=== PATIENT | male | born 1935 | race Caucasian/White ===

== ENCOUNTER 2016-03-11 02:26 | Observation (INO) | payer MEDICARE ==
[2016-03-11] VITALS (16 sets, daily range): BP systolic 100–137; BP diastolic 51–97; PULSE 60–108; RESP 15–24; TEMP 97.6–99.9; O2SAT 93–98
[~2016-03-11 02:26] MED LIST: CIPR-9 PO
[2016-03-11] MEDS ORDERED: LEUP1INJ6 SQ (05:48)
--- NOTE | 2016-03-11 05:51 | PD ---
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 +Fever today. +Cough. +Nasal congestion. Denies any chest pain, n/v, abdominal pain, weakness, numbness, history of PE, DVT. Pt had allen place by Dr. De Jesus yesterday because he was having gross hematuria with blood clots. PFSH Past Medical History Blood Disorders: No Anxiety: No Depression: No Heart Rhythm Problems: Yes (CURRENTLY HAS A PACEMAKER) Cancer: Yes (PROSTATE 2004 AND 2006 W/CRYOSURGERY) Cardiovascular Problems: Yes (PACEMAKER) High Cholesterol: No Chemotherapy: Yes (PROSTATE CA) Chest Pain: No Congestive Heart Failure: No Diminished Hearing: No Endocrine: No Genitourinary: Yes (PROSTATE CA, CRYOSURGERY, TURP) Immune Disorder: No Implanted Vascular Access Dvce: Yes Musculoskeletal: No Neurologic: No Psychiatric: No Reproductive: No Respiratory: No Radiation Therapy: No Past Surgical History Abdominal Surgery: No Body Medical Devices: PACEMAKER Cardiac Surgery: Yes (PACEMAKER) Ear Surgery: No Endocrine Surgery: No Eye Surgery: No Genitourinary Surgery: Yes (TURP ) Gynecologic Surgery: No Oral Surgery: No Pacemaker: Yes Thoracic Surgery: No Other Surgery: Yes Social History Alcohol Use: No Tobacco Use: No Substance Use: No Allergies-Medications (Allergen,Severity, Reaction): Coded Allergies: No Known Allergies (Verified , 03/11/16) Reported Meds & Prescriptions Reported Meds & Active Scripts Active Reported Eligard Inj Kit (Leuprolide (4 Month) Inj Kit) 30 Mg Kit 30 Mg SQ Q120D Review of Systems Except as stated in HPI: all other systems reviewed are Neg Physical Exam Narrative GENERAL: 80yo M not in distress. SKIN: Warm and dry. HEAD: Atraumatic. Normocephalic. EYES: Pupils equal and round. No scleral icterus. No injection or drainage. ENT: No nasal bleeding or discharge. Mucous membranes pink and moist. NECK: Trachea midline. No JVD. CARDIOVASCULAR: Regular rate and rhythm. No murmur appreciated. RESPIRATORY: No accessory muscle use. Clear to auscultation. Breath sounds equal bilaterally. GASTROINTESTINAL: Abdomen soft, non-tender, nondistended. No rebound tenderness or guarding. MUSCULOSKELETAL: No obvious deformities. No clubbing. No cyanosis. Trace bilateral lower ext edema. NEUROLOGICAL: Awake and alert. No obvious cranial nerve deficits. Motor grossly within normal limits. Normal speech. PSYCHIATRIC: Appropriate mood and affect; insight and judgment normal. Data Data Last Documented VS Vital Signs Date Time Temp Pulse Resp B/P Pulse Ox O2 Delivery O2 Flow Rate FiO2 03/11/16 07:35 60 16 102/51 95 Room Air 03/11/16 05:46 98.7 Orders Complete Blood Count With Diff (03/11/16 05:46) Basic Metabolic Panel (Bmp) (03/11/16 05:46) Act Partial Throm Time (Ptt) (03/11/16 05:46) Prothrombin Time / Inr (Pt) (03/11/16 05:46) Troponin I (03/11/16 05:46) Influenzae A/B Antigen (03/11/16 05:46) Blood Culture (03/11/16 05:46) Iv Access Insert/Monitor (03/11/16 05:46) Ecg Monitoring (03/11/16 05:46) Oximetry (03/11/16 05:46) Oxygen Administration (03/11/16 05:46) Chest, Single Ap (03/11/16 05:46) Sodium Chloride 0.9% Flush (Ns Flush) (03/11/16 06:00) Red Blood Cells (Rbc) (03/11/16 07:33) Blood Product Administration .UPON TRANSFUSION (03/11/16 07:33) Sodium Chlor 0.9% 250 Ml Inj (Ns 250 Ml (03/11/16 07:45) Type And Screen (03/11/16 07:33) Admit Order (Ed Use Only) (03/11/16 08:03) Labs Laboratory Tests Test 03/11/16 05:55 White Blood Count 11.7 TH/MM3 Red Blood Count 2.94 MIL/MM3 Hemoglobin 7.6 GM/DL Hematocrit 23.8 % Mean Corpuscular Volume 81.0 FL Mean Corpuscular Hemoglobin 25.9 PG Mean Corpuscular Hemoglobin 31.9 % Concent Red Cell Distribution Width 16.4 % Platelet Count 313 TH/MM3 Mean Platelet Volume 8.5 FL Neutrophils (%) (Auto) % Lymphocytes (%) (Auto) % Monocytes (%) (Auto) % Eosinophils (%) (Auto) % Basophils (%) (Auto) % Neutrophils # (Auto) TH/MM3 Lymphocytes # (Auto) TH/MM3 Monocytes # (Auto) TH/MM3 Eosinophils # (Auto) TH/MM3 Basophils # (Auto) TH/MM3 CBC Comment AUTO DIFF Differential Total Cells 100 Counted Neutrophils % (Manual) 82 % Band Neutrophils % 5 % Lymphocytes % 3 % Monocytes % 9 % Basophils % 1 % Neutrophils # (Manual) 10.2 TH/MM3 Differential Comment FINAL DIFF MANUAL Platelet Estimate NORMAL Platelet Morphology Comment NORMAL Prothrombin Time 12.5 SEC Prothromb Time International 1.1 RATIO Ratio Activated Partial 28.1 SEC Thromboplast Time Sodium Level 136 MEQ/L Potassium Level 4.6 MEQ/L Chloride Level 104 MEQ/L Carbon Dioxide Level 23.9 MEQ/L Anion Gap 8 MEQ/L Blood Urea Nitrogen 38 MG/DL Creatinine 2.22 MG/DL Estimat Glomerular Filtration 29 ML/MIN Rate Random Glucose 108 MG/DL Calcium Level 8.9 MG/DL Troponin I 0.21 NG/ML MDM Medical Decision Making Medical Screen Exam Complete: Yes Emergency Medical Condition: Yes Interpretation(s) EKG: Paced rhythm at 60bpm. LAD. No concordance. Last Impressions Chest X-Ray 03/11/16 0546 Signed Impressions: Service Date/Time: Friday, March 11, 2016 06:00 - CONCLUSION: No acute disease. Michael Coyle MD Laboratory Tests Test 03/11/16 05:55 White Blood Count 11.7 TH/MM3 (4.0-11.0) Red Blood Count 2.94 MIL/MM3 (4.50-5.90) Hemoglobin 7.6 GM/DL (13.0-17.0) Hematocrit 23.8 % (39.0-51.0) Mean Corpuscular Volume 81.0 FL (80.0-100.0) Mean Corpuscular Hemoglobin 25.9 PG (27.0-34.0) Mean Corpuscular Hemoglobin 31.9 % Concent (32.0-36.0) Red Cell Distribution Width 16.4 % (11.6-17.2) Platelet Count 313 TH/MM3 (150-450) Mean Platelet Volume 8.5 FL (7.0-11.0) Neutrophils (%) (Auto) % (16.0-70.0) Lymphocytes (%) (Auto) % (9.0-44.0) Monocytes (%) (Auto) % (0.0-8.0) Eosinophils (%) (Auto) % (0.0-4.0) Basophils (%) (Auto) % (0.0-2.0) Neutrophils # (Auto) TH/MM3 (1.8-7.7) Lymphocytes # (Auto) TH/MM3 (1.0-4.8) Monocytes # (Auto) TH/MM3 (0-0.9) Eosinophils # (Auto) TH/MM3 (0-0.4) Basophils # (Auto) TH/MM3 (0-0.2) CBC Comment AUTO DIFF Prothrombin Time 12.5 SEC (9.8-11.6) Prothromb Time International 1.1 RATIO Ratio Activated Partial 28.1 SEC Thromboplast Time (24.3-30.1) Sodium Level 136 MEQ/L (136-145) Potassium Level 4.6 MEQ/L (3.5-5.1) Chloride Level 104 MEQ/L (98-107) Carbon Dioxide Level 23.9 MEQ/L (21.0-32.0) Anion Gap 8 MEQ/L (5-15) Blood Urea Nitrogen 38 MG/DL (7-18) Creatinine 2.22 MG/DL (0.60-1.30) Estimat Glomerular Filtration 29 ML/MIN (>89) Rate Random Glucose 108 MG/DL (74-106) Calcium Level 8.9 MG/DL (8.5-10.1) Troponin I 0.21 NG/ML (0.02-0.05) Differential Diagnosis PNA vs. symptomatic anemia vs. influenza vs. URI vs. ACS Narrative Course 80yo M with prostate CA with increasing hematuria who had allen placed yesterday by urologist here with worsening sob. H/H is 7.6/23.8. Pt is having active hematuria and symptomatic anemia so will transfuse 1 unit of PRBC. BUN/ creatinine elevated at 38/2.22 from 21/1.65. Troponin 0.21. CXR showed no acute disease. Influenza negative. I sign out to next team after end of my shift to speak to admitting team to admit patient for symptomatic anemia with active bleeding after a prolonged wait for call back from admitting team. Diagnosis Primary Impression: Symptomatic anemia Admitting Information Admitting Physician Requests: it Rosa Elder DO Mar 11, 2016 05:51
[2016-03-11] MEDS ORDERED: SODIUM CHLORIDE 0.9% FLUSH 5 ML FLUSH IVF PRN (06:00)
[2016-03-11 06:37] LABS: HEMATOCRIT 23.8 % (39.0-51.0); MEAN CORPUSCULAR HEMOGLOBIN 25.9 PG (27.0-34.0); MEAN CORPUSCULAR HGB CONC 31.9 % (32.0-36.0); PLATELET COUNT 313 TH/MM3 (150-450); RED BLOOD COUNT 2.94 MIL/MM3 (4.50-5.90); RED CELL DISTRIBUTION WIDTH 16.4 % (11.6-17.2); WHITE BLOOD COUNT 11.7 TH/MM3 (4.0-11.0)
[2016-03-11 06:42] LABS: HEMO FLAGS AUTO DIFF
--- NOTE | 2016-03-11 06:46 | RADRPT ---
EXAM DATE/TIME: 03/11/2016 06:00 [facility] COMPARISON: CHEST SINGLE AP, January 29, 2016, 19:45. INDICATIONS : Short of breath. MEDICAL HISTORY : Carcinoma, prostatic. SURGICAL HISTORY : Pacemaker. Prostate open reduction, Laminectomy ENCOUNTER: Initial ACUITY: 1 day PAIN SCORE: 0/10 LOCATION: Bilateral chest FINDINGS: A single view of the chest demonstrates the lungs to be symmetrically aerated without evidence of mas s, infiltrate or effusion. Left-sided pacemaker with 2 intact leads. The cardiomediastinal contours a re unremarkable. Osseous structures are intact. CONCLUSION: No acute disease. Michael Coyle MD on March 11, 2016 at 6:44 Board Certified Radiologist. This report was verified electronically.
[2016-03-11 06:50] LABS: APTT (PATIENT) 28.1 SEC (24.3-30.1); INTERNATIONAL NORMALIZED RATIO 1.1 RATIO; PROTHROMBIN TIME - PATIENT 12.5 SEC (9.8-11.6)
[2016-03-11 06:54] LABS: BICARBONATE 23.9 MEQ/L (21.0-32.0); POTASSIUM 4.6 MEQ/L (3.5-5.1)
[2016-03-11] MEDS ORDERED: SODIUM CHLOR 0.9% 250 ML INJ 250 ML IV ONE (07:45)
--- NOTE | 2016-03-11 08:05 | PD ---
Physical Exam Date Seen by Provider: Mar 11, 2016 Time Seen by Provider: 07:45 Narrative Patient signed out to me by Dr. Elder, please see previous notes for further information. History of prostate cancer, hematuria, admitted in the past for hematuria and anemia, here because of gross hematuria and is anemic. Awaiting admission. Laboratory Tests Test 03/11/16 05:55 White Blood Count 11.7 TH/MM3 (4.0-11.0) Red Blood Count 2.94 MIL/MM3 (4.50-5.90) Hemoglobin 7.6 GM/DL (13.0-17.0) Hematocrit 23.8 % (39.0-51.0) Mean Corpuscular Hemoglobin 25.9 PG (27.0-34.0) Mean Corpuscular Hemoglobin 31.9 % Concent (32.0-36.0) Prothrombin Time 12.5 SEC (9.8-11.6) Blood Urea Nitrogen 38 MG/DL (7-18) Creatinine 2.22 MG/DL (0.60-1.30) Estimat Glomerular Filtration 29 ML/MIN (>89) Rate Random Glucose 108 MG/DL (74-106) Troponin I 0.21 NG/ML (0.02-0.05) Last 24 hours Impressions Chest X-Ray 03/11/16 0546 Signed Impressions: Service Date/Time: Friday, March 11, 2016 06:00 - CONCLUSION: No acute disease. Michael Coyle MD Case was discussed with Dr. Bone who knows the patient well. Patient is ordered for transfusion. Except by hospitalist for further treatment. Data Data Last Documented VS Vital Signs Date Time Temp Pulse Resp B/P Pulse Ox O2 Delivery O2 Flow Rate FiO2 03/11/16 07:35 60 16 102/51 95 Room Air 03/11/16 05:46 98.7 Orders Complete Blood Count With Diff (03/11/16 05:46) Basic Metabolic Panel (Bmp) (03/11/16 05:46) Act Partial Throm Time (Ptt) (03/11/16 05:46) Prothrombin Time / Inr (Pt) (03/11/16 05:46) Troponin I (03/11/16 05:46) Influenzae A/B Antigen (03/11/16 05:46) Blood Culture (03/11/16 05:46) Iv Access Insert/Monitor (03/11/16 05:46) Electrocardiogram (03/11/16 05:46) Ecg Monitoring (03/11/16 05:46) Oximetry (03/11/16 05:46) Oxygen Administration (03/11/16 05:46) Chest, Single Ap (03/11/16 05:46) Sodium Chloride 0.9% Flush (Ns Flush) (03/11/16 06:00) Red Blood Cells (Rbc) (03/11/16 07:33) Blood Product Administration .UPON TRANSFUSION (03/11/16 07:33) Sodium Chlor 0.9% 250 Ml Inj (Ns 250 Ml (03/11/16 07:45) Type And Screen (03/11/16 07:33) Labs Laboratory Tests Test 03/11/16 05:55 White Blood Count 11.7 TH/MM3 Red Blood Count 2.94 MIL/MM3 Hemoglobin 7.6 GM/DL Hematocrit 23.8 % Mean Corpuscular Volume 81.0 FL Mean Corpuscular Hemoglobin 25.9 PG Mean Corpuscular Hemoglobin 31.9 % Concent Red Cell Distribution Width 16.4 % Platelet Count 313 TH/MM3 Mean Platelet Volume 8.5 FL Neutrophils (%) (Auto) % Lymphocytes (%) (Auto) % Monocytes (%) (Auto) % Eosinophils (%) (Auto) % Basophils (%) (Auto) % Neutrophils # (Auto) TH/MM3 Lymphocytes # (Auto) TH/MM3 Monocytes # (Auto) TH/MM3 Eosinophils # (Auto) TH/MM3 Basophils # (Auto) TH/MM3 CBC Comment AUTO DIFF Prothrombin Time 12.5 SEC Prothromb Time International 1.1 RATIO Ratio Activated Partial 28.1 SEC Thromboplast Time Sodium Level 136 MEQ/L Potassium Level 4.6 MEQ/L Chloride Level 104 MEQ/L Carbon Dioxide Level 23.9 MEQ/L Anion Gap 8 MEQ/L Blood Urea Nitrogen 38 MG/DL Creatinine 2.22 MG/DL Estimat Glomerular Filtration 29 ML/MIN Rate Random Glucose 108 MG/DL Calcium Level 8.9 MG/DL Troponin I 0.21 NG/ML [facility] Medical Record Reviewed: Yes Supervised Visit with CARLOS: No Diagnosis Primary Impression: Symptomatic anemia Additional Impression: Hematuria Admitting Information Admitting Physician Requests: Admit Zhang De Leon MD Mar 11, 2016 08:05
[2016-03-11 08:27] LABS: BANDS 5 % (0-6); BASOPHILS 1 % (0-2); NEUTROPHIL # MANUAL DIFF 10.2 TH/MM3 (1.8-7.7); PLATELET ESTIMATE SMEAR NORMAL (NORMAL); PLATELET MORPHOLOGY NORMAL (NORMAL); POLYS (SEG NEUTROPHILS) 82 % (16-70); SCAN/DIFF FINAL DIFF MANUAL; WBC DIFF SAMPLE 100
--- NOTE | 2016-03-11 08:38 | HHI.HP ---
HPI Service [facility] Hospitalists Primary Care Physician Eriberto Galloway M.D. Admission Diagnosis symptomatic anemia/hematuria Chief Complaint: SOB, cough, generalized weakness, hematuria Travel History International Travel<30 Days: No Contact w/Intl Traveler <30 Da: No Traveled to Known Affected Are: No History of Present Illness Mr. Arora is a pleasant 80 y/o WM with recurrent prostate cancer s/p TURP 10/28 and cystourethroscopy with clot evacuation and bladder fulguration on who follows with Dr. Wright. 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 Pt presented to the ED with complaints of cough, congestion , fever, SOB and hematuria. Pts reports that for the last 2 days he has had cough, congestion and poor oral intake. He also started having hematuria with large clots which were unable to be evacuated. He was seen by Dr. Mckinney as an outpt yesterday and had a Hagan cath placed. Then last night the pt started having fevers of 100.3, chills, generalized weakness and SOB. This prompted the pt to come to the ER for further evaluation. Pts labs at admission noted WBC count 11.1, Hgb 7.6/Hct 23.8, and acute on chronic renal insufficiency with Cr 2.22/BUN 38. Pts reports that he has not been eating or drinking much in the last 2 days. Pt denies any chest pain, N/V, abdominal pain, or palpitations. He has received Eligard injection, his last one was on . Review of Systems Constitutional: COMPLAINS OF: Fever, Chills, Change in appetite, DENIES: Weight gain, Weight loss Eyes: DENIES: Vision loss Ears, nose, mouth, throat: COMPLAINS OF: Running Nose, DENIES: Hearing loss Respiratory: COMPLAINS OF: Cough, Shortness of breath Cardiovascular: DENIES: Chest pain, Palpitations, Lower Extremity Edema Gastrointestinal: DENIES: Abdominal pain, Nausea, Vomiting Genitourinary: COMPLAINS OF: Hematuria, DENIES: Dysuria Musculoskeletal: DENIES: Back pain, Neck pain Integumentary: DENIES: Rash Neurologic: DENIES: Headache, Localized weakness, Paresthesias Past Family Social History Past Medical History Recurrent prostate cancer Sinus bradycardia Complete heart block s/p PPM Asthma Hx of alcohol abuse Hx of tobacco use Past Surgical History PPM 08/2015 Cystourethroscopy with clot evacuation and bladder fulguration on 01/13/16 TURP 10/29/2015 Prostatectomy 2002 Right sided cryotherapy in 2004 Focal radiation therapy as salvage in 2011 Left thumb surgery L4-L5 laminectomy Reported Medications Eligard Inj Kit (Leuprolide (4 Month) Inj Kit) 30 Mg Kit 30 Mg SQ Q120D Allergies: Coded Allergies: No Known Allergies (Verified , 03/11/16) Family History Noncontributory Social History This with his of 4 years. They have been together for 14. He smokes about 5 cigarettes a day. He previously had smoked up to one pack per day intermittently for most of his adult life. No alcohol or illicit drugs Previously he was a senior speech pathologist with [employer] Originally from [place], he has been in [place] since 1967 He is an avid runner. Physical Exam Vital Signs Vital Signs Date Time Temp Pulse Resp B/P Pulse Ox O2 Delivery O2 Flow Rate FiO2 03/11/16 07:35 60 16 102/51 95 Room Air 03/11/16 07:00 18 97 03/11/16 05:46 98.7 73 18 106/53 96 03/11/16 05:40 76 20 03/11/16 02:36 108 24 137/97 96 Room Air 03/11/16 02:31 97.8 99 16 119/58 96 Room Air Physical Exam GENERAL: This is a well-nourished, well-developed patient, in no apparent distress. HEENT: Atraumatic. Normocephalic. No temporal or scalp tenderness. No scleral icterus. Airway patent. NECK: Trachea midline, supple, nontender. CARDIO: Regular RESP: CTA bilaterally. No wheezes, rales, or rhonchi. ABD: +BS, soft, non-tender, nondistended. : Hagan cath in place with gross hematuria noted EXT: Extremities without clubbing, cyanosis, or edema. NEURO: Awake and alert. Motor and sensory grossly within normal limits. Normal speech. Laboratory Laboratory Tests Test 03/11/16 05:55 White Blood Count 11.7 Red Blood Count 2.94 Hemoglobin 7.6 Hematocrit 23.8 Mean Corpuscular Volume 81.0 Mean Corpuscular Hemoglobin 25.9 Mean Corpuscular Hemoglobin 31.9 Concent Red Cell Distribution Width 16.4 Platelet Count 313 Mean Platelet Volume 8.5 Neutrophils (%) (Auto) Lymphocytes (%) (Auto) Monocytes (%) (Auto) Eosinophils (%) (Auto) Basophils (%) (Auto) Neutrophils # (Auto) Lymphocytes # (Auto) Monocytes # (Auto) Eosinophils # (Auto) Basophils # (Auto) CBC Comment AUTO DIFF Prothrombin Time 12.5 Prothromb Time International 1.1 Ratio Activated Partial 28.1 Thromboplast Time Sodium Level 136 Potassium Level 4.6 Chloride Level 104 Carbon Dioxide Level 23.9 Anion Gap 8 Blood Urea Nitrogen 38 Creatinine 2.22 Estimat Glomerular Filtration 29 Rate Random Glucose 108 Calcium Level 8.9 Troponin I 0.21 Date/Time Procedure Status Source Growth 03/11/16 06:15 Influenza Types A,B Antigen (MADISYN) - Final Complete Nasal Aspirate NEGATIVE FOR FLU A AND B ANTIGEN.... 03/11/16 06:10 Aerobic Blood Culture Received Blood Peripheral Pending 03/11/16 06:10 Anaerobic Blood Culture Received Blood Peripheral Pending Result Diagram: 03/11/16 0555 03/11/16 0555 Imaging Last Impressions Chest X-Ray 03/11/16 0546 Signed Impressions: Service Date/Time: Friday, March 11, 2016 06:00 - CONCLUSION: No acute disease. Michael Coyle MD Septic Shock Reassessment Heart: Regular rate and rhythm Lungs: Clear Skin: Warm Peripheral Pulses: Bounding Right Radial Bounding Left Radial Bounding Right Popliteal Bounding Left Popliteal Bounding Right Dorsalis Pedis Bounding Left Dorsalis Pedis Bounding Right Posterior Tibial Bounding Left Posterior Tibial Capillary Refill: <2 seconds Assessment and Plan Problem List: (1) Hematuria Status: Acute Plan: - Pt with recurrent prostate cancer s/p TURP in 10/2015 and cystourethroscopy with clot evacuation and bladder fulguration in 01/2016 who typically follows with Dr. Wright. - Pt started having hematuria and obstruction related to large clots and had Hagan cath placed back yesterday with Dr. Mckinney. He has a followup appt in [address] Mckinney. - Pt had fevers and chills that night and then reported to the ER - Pt noted to be anemic with Hgb 7.6 and is planned for transfusion with 1 unit PRBCs - Pts feels that the hematuria is less today than yesterday. - UA is abnormal with noted large amount of leukocyte esterase. Urine culture is ordered (2) Cough Status: Acute Plan: - Pt has had cough, congestion, and fever x 2 days. - Pt has been afebrile since admission. - WBC count 11 at admission. - Blood cultures pending. - Likely a viral illness - Supportive care - Claritin - Tessalon pearls (3) Elevated troponin Status: Acute Plan: - Pt with a noted elevated troponin I of 0.21 at admission - Significance unclear. Pt denies any chest pain or palpitations - He did have some SOB prior to admission which has since resolved - Check EKG and serial troponin - NO hx of CAD (4) Anemia Status: Chronic Plan: - Pt with acute on chronic anemia due to blood loss related to his hematuria. - Pt is planned for transfusion with 1 units PRBCs ordered by the ER - Monitor H/H - Pt still with gross hematuria but reported to be improving per the pts . (5) Complete heart block Status: Chronic Plan: - s/p PPM in 08/2015 (6) History of prostate cancer Status: Chronic Assessment and Plan Patient examined. Assessment and plan formulated with Dee Garcia PA-C. I agree with the above. pt is now very discouraged. I will call dr Wright in the morning to discuss the direction of his care. pt gets admittedly frequently for blood loss anemia related ot ongoing hematuria related to previous surgery. Problem Qualifiers (1) Anemia: Qualified Code: D62 - Acute posthemorrhagic anemia Dee Garcia Mar 11, 2016 08:38 Aristeo Bone MD Mar 11, 2016 21:17
[2016-03-11] MEDS ORDERED: SODIUM CHLORIDE 0.9% FLUSH 5 ML FLUSH IV PRN (08:45)
[2016-03-11] MEDS ORDERED: ACETAMINOPHEN 325 MG TAB PO PRN (09:00)
[2016-03-11] MEDS ORDERED: ONDANSETRON HCL 4 MG/2 ML VIAL IV PRN (09:00)
[2016-03-11] MEDS: SODIUM CHLORIDE 0.9% FLUSH 5 ML FLUSH IV SCH ×2 (09:00→21:00)
[2016-03-11] MEDS ORDERED: BENZONATATE 100 MG CAP PO PRN (09:30)
[2016-03-11] MEDS: SODIUM CHLOR 0.9% 1000 ML INJ 1,000 ML IV SCH ×2 (12:50→21:30)
[2016-03-11] MEDS: LORATADINE 10 MG TAB PO SCH (12:50)
--- NOTE | 2016-03-11 14:07 | EKG ---
Date Performed: 03/11/2016 Time Performed: 07:37:56 PTAGE: 80 years EKG: ELECTRONIC ATRIAL PACEMAKER ELECTRONIC VENTRICULAR PACEMAKER ABNORMAL RHYTHM ECG Since PREVIOUS TRACING , no significant change noted PREVIOUS TRACIN08/07/2015 11.21 DOCTOR: Regan Ren Interpretating Date/Time 03/11/2016 14:00:04
[2016-03-11 21:14] LABS: BLOOD, URINE LARGE (NEG); COMMENT (UR) CULTURE INDICATED; CULTURE IF INDICATED CULTURE INDICATED; GLUCOSE,URINE NEG (NEG); KETONE, URINE NEG (NEG); NITRITE,URINE NEG (NEG); PH, URINE 6.5 (5.0-8.5); SQUAMOUS EPITHELIAL CELL URINE 3 /hpf (0-5)
[2016-03-11 21:15] LABS: URINE COLOR DARK-RED (YELLW/STRAW)
[2016-03-12] VITALS: PULSE 60
[2016-03-12 00:42] VITALS: BP 111/54; PULSE 60; RESP 20; TEMP 98.9; O2SAT 93
[2016-03-12 04:50] VITALS: BP 121/59; PULSE 60; RESP 20; TEMP 98.7; O2SAT 93
[2016-03-12 06:26] LABS: HEMATOCRIT 25.8 % (39.0-51.0); MEAN CELL VOLUME 81.7 FL (80.0-100.0); PLATELET COUNT 262 TH/MM3 (150-450); RED BLOOD COUNT 3.15 MIL/MM3 (4.50-5.90); RED CELL DISTRIBUTION WIDTH 16.6 % (11.6-17.2); WHITE BLOOD COUNT 7.6 TH/MM3 (4.0-11.0)
[2016-03-12 06:53] LABS: BICARBONATE 26.1 MEQ/L (21.0-32.0); MAGNESIUM 2.3 MG/DL (1.5-2.5)
[2016-03-12 07:02] LABS: HEMO FLAGS AUTO DIFF
[2016-03-12] MEDS: SODIUM CHLORIDE 0.9% FLUSH 5 ML FLUSH IV SCH (07:26)
[2016-03-12 08:34] VITALS: BP 113/55; PULSE 60; RESP 18; TEMP 98; O2SAT 95
[2016-03-12 09:50] LABS: BANDS 13 % (0-6); NEUTROPHIL # MANUAL DIFF 5.9 TH/MM3 (1.8-7.7); OVALOCYTES 1+ (NORMAL); PLATELET ESTIMATE SMEAR NORMAL (NORMAL); PLATELET MORPHOLOGY NORMAL (NORMAL); POLYS (SEG NEUTROPHILS) 64 % (16-70); SCAN/DIFF FINAL DIFF MANUAL; WBC DIFF SAMPLE 100
[2016-03-12 09:51] LABS: ACANTHOCYTES 1+ (NORMAL)
--- NOTE | 2016-03-12 09:56 | HHI.PR ---
Subjective Remarks Pt overall feeling better today. Still with gross hematuria. He states that his cough is less today with the Claritin Objective Vitals Vital Signs Date Time Temp Pulse Resp B/P Pulse Ox O2 Delivery O2 Flow Rate FiO2 03/12/16 08:34 98.0 60 18 113/55 95 03/12/16 04:50 98.7 60 20 121/59 93 03/12/16 00:42 98.9 60 20 111/54 93 03/12/16 00:00 60 03/11/16 22:15 97.6 60 18 109/55 95 03/11/16 21:16 99.9 63 20 101/53 93 03/11/16 19:30 64 18 107/64 97 Room Air 03/11/16 18:08 60 16 110/53 97 Room Air 03/11/16 16:57 77 18 106/53 98 Room Air 03/11/16 16:00 74 18 116/57 98 Room Air 03/11/16 15:20 65 18 110/54 98 Room Air 03/11/16 15:06 97.8 60 18 125/60 97 Room Air 03/11/16 14:14 61 18 103/51 97 Room Air 03/11/16 12:11 60 18 113/56 97 03/11/16 09:49 60 15 100/51 Nasal Cannula 2 98 03/11/16 03/11/16 03/12/16 15:00 23:00 07:00 Output Total 500 ml Balance -500 ml Output Urine Total 500 ml Result Diagram: 03/12/16 0516 03/12/16 0516 Other Results Laboratory Tests Test 03/11/16 03/11/16 03/11/16 03/11/16 05:55 08:10 09:50 12:46 White Blood Count 11.7 TH/MM3 Red Blood Count 2.94 MIL/MM3 Hemoglobin 7.6 GM/DL Hematocrit 23.8 % Mean Corpuscular Volume 81.0 FL Mean Corpuscular Hemoglobin 25.9 PG Mean Corpuscular Hemoglobin 31.9 % Concent Red Cell Distribution Width 16.4 % Platelet Count 313 TH/MM3 Mean Platelet Volume 8.5 FL Neutrophils (%) (Auto) % Lymphocytes (%) (Auto) % Monocytes (%) (Auto) % Eosinophils (%) (Auto) % Basophils (%) (Auto) % Neutrophils # (Auto) TH/MM3 Lymphocytes # (Auto) TH/MM3 Monocytes # (Auto) TH/MM3 Eosinophils # (Auto) TH/MM3 Basophils # (Auto) TH/MM3 CBC Comment AUTO DIFF Differential Total Cells 100 Counted Neutrophils % (Manual) 82 % Band Neutrophils % 5 % Lymphocytes % 3 % Monocytes % 9 % Basophils % 1 % Neutrophils # (Manual) 10.2 TH/MM3 Differential Comment FINAL DIFF MANUAL Platelet Estimate NORMAL Platelet Morphology Comment NORMAL Prothrombin Time 12.5 SEC Prothromb Time International 1.1 RATIO Ratio Activated Partial 28.1 SEC Thromboplast Time Sodium Level 136 MEQ/L Potassium Level 4.6 MEQ/L Chloride Level 104 MEQ/L Carbon Dioxide Level 23.9 MEQ/L Anion Gap 8 MEQ/L Blood Urea Nitrogen 38 MG/DL Creatinine 2.22 MG/DL Estimat Glomerular Filtration 29 ML/MIN Rate Random Glucose 108 MG/DL Calcium Level 8.9 MG/DL Troponin I 0.21 NG/ML 0.20 NG/ML Blood Type A NEGATIVE Antibody Screen POSITIVE Crossmatch Leukocyte-Reduced Red Blood Cells Blood Bank Comment Antibody Identification Anti-M Test 03/11/16 03/11/16 03/11/16 03/12/16 14:55 17:59 20:30 05:16 Troponin I 0.12 NG/ML Blood Type A NEGATIVE Crossmatch Leukocyte-Reduced Red Blood Cells Blood Bank Comment Urine Color DARK-RED Urine Turbidity MARKED Urine pH 6.5 Urine Specific [place] 1.020 Urine Protein 100 mg/dL Urine Glucose (UA) NEG mg/dL Urine Ketones NEG mg/dL Urine Occult Blood LARGE Urine Nitrite NEG Urine Bilirubin NEG Urine Urobilinogen LESS THAN 2.0 MG/DL Urine Leukocyte Esterase LARGE Urine RBC /hpf Urine WBC /hpf Urine Squamous Epithelial 3 /hpf Cells Microscopic Urinalysis Comment CULTURE INDICATED White Blood Count 7.6 TH/MM3 Red Blood Count 3.15 MIL/MM3 Hemoglobin 8.5 GM/DL Hematocrit 25.8 % Mean Corpuscular Volume 81.7 FL Mean Corpuscular Hemoglobin 27.0 PG Mean Corpuscular Hemoglobin 33.0 % Concent Red Cell Distribution Width 16.6 % Platelet Count 262 TH/MM3 Mean Platelet Volume 8.3 FL Neutrophils (%) (Auto) % Lymphocytes (%) (Auto) % Monocytes (%) (Auto) % Eosinophils (%) (Auto) % Basophils (%) (Auto) % Neutrophils # (Auto) TH/MM3 Lymphocytes # (Auto) TH/MM3 Monocytes # (Auto) TH/MM3 Eosinophils # (Auto) TH/MM3 Basophils # (Auto) TH/MM3 CBC Comment AUTO DIFF Sodium Level 141 MEQ/L Potassium Level 4.0 MEQ/L Chloride Level 108 MEQ/L Carbon Dioxide Level 26.1 MEQ/L Anion Gap 7 MEQ/L Blood Urea Nitrogen 41 MG/DL Creatinine 1.65 MG/DL Estimat Glomerular Filtration 40 ML/MIN Rate Random Glucose 93 MG/DL Calcium Level 8.3 MG/DL Magnesium Level 2.3 MG/DL Imaging Last Impressions Chest X-Ray 03/11/16 0546 Signed Impressions: Service Date/Time: Friday, March 11, 2016 06:00 - CONCLUSION: No acute disease. Michael Coyle MD Objective Remarks General: NAD, AAOx3 Chest: CTA bilaterally Cardiac: Regular Abd: +BS, soft ND/NT Ext: No edema A/P Problem List: (1) Hematuria Status: Acute Plan: - Pt with recurrent prostate cancer s/p TURP in 10/2015 and cystourethroscopy with clot evacuation and bladder fulguration in 01/2016 who typically follows with Dr. Wright. - Pt started having hematuria and obstruction related to large clots and had Allen cath placed back on 03/10/[address] Mckinney. He has a followup appt in [address] Mckinney. - Pt had reported fevers and chills that night and reported to the ER for further evaluation. - Pt noted to be anemic with Hgb 7.6 and pt was transfused with 2 units PRBCs. - H/H is improved today to 8.5/25.8 - Pts feels that the hematuria is less today than yesterday. - Renal function is back to baseline with the IVF - UA is abnormal and urine culture is growing group D. enterococcus - Case was discussed with his Urologist Dr. Wright and pt was prescribed Augmentin TID x 7 days. - His Allen cath is to be exchagned by [employer] prior to discharge. - Pt will followup with Dr. Woods in 3-5 days. - DVT prophylaxis (2) Cough Status: Acute Plan: - Pt has had cough, congestion, and fever x 2 days. - Pt has been afebrile since admission. - WBC count 11 at admission and improved to 7.6 today - Blood cultures pending. - Likely a viral illness - Supportive care - Claritin - Tessalon pearls PRN (3) Elevated troponin Status: Acute Plan: - Pt with a noted elevated troponin I of 0.21 at admission - Significance unclear. Pt denies any chest pain or palpitations - He did have some SOB prior to admission which has since resolved - Serial troponins are decreased 0.21-->0.20-->0.12 - No new EKG changes - NO hx of CAD (4) Anemia Status: Chronic Plan: - Pt with acute on chronic anemia due to blood loss related to his hematuria. - Pt s/p transfusion with 2 units PRBCs - Pt still with gross hematuria but reported to be improving per the pts . (5) Complete heart block Status: Chronic Plan: - s/p PPM in 08/2015 (6) History of prostate cancer Status: Chronic Assessment and Plan Patient examined. Assessment and plan formulated with Dee Garcia PA-C. I agree with the above. persistent hematuria. pt known to dr Wright. Has been getting Eligard. admitted multiple times for symptomatic anemia. states recently returned to yellow urine with eligard then reoccurred and allen placed a few days ago. says he had fever and rigors at home. urine group d enterococcus for the first time. discussed with dr wright and pt and pt . all in agreement with change allen and abx. will ask urology tech to change the cath here. Problem Qualifiers (1) Anemia: Qualified Code: D62 - Acute posthemorrhagic anemia Dee Garcia Mar 12, 2016 09:56 Aristeo Bone MD Mar 12, 2016 16:03 Dee Garcia Mar 12, 2016 09:56 Aristeo Bone MD Mar 12, 2016 16:03
[2016-03-12] MEDS ORDERED: LORA-361 PO (09:58)
--- NOTE | 2016-03-12 10:00 | HHI.DCPOC ---
Discharge Care Plan Diagnosis: (1) Hematuria (2) Anemia (3) Elevated troponin (4) Cough Goals to Promote Your Health * To prevent worsening of your condition and complications * To maintain your health at the optimal level Directions to Meet Your Goals Take your medications as prescribed Follow your dietary instruction Follow activity as directed Keep your appointments as scheduled Take your immunizations and boosters as scheduled If your symptoms worsen call your PCP, if no PCP go to Urgent Care Center or Emergency Room Smoking is Dangerous to Your Health. Avoid second hand smoke Call the 24-hour hour crisis hotline for domestic abuse at Dee Garcia Mar 12, 2016 10:00
[2016-03-12] MEDS: LORATADINE 10 MG TAB PO SCH (10:21)
[2016-03-12 12:26] VITALS: BP 120/58; PULSE 60; RESP 18; TEMP 97.9; O2SAT 95
[2016-03-12] MEDS ORDERED: AUGM500T7 PO ×2 (13:28→14:11)
[2016-03-12] MEDS ORDERED: AMOXICILLIN/CLAVULANATE K 500 MG TAB PO ONE (13:30)
--- NOTE | 2016-03-12 22:42 | EKG ---
Date Performed: 03/11/2016 Time Performed: 15:32:37 PTAGE: 80 years EKG: ELECTRONIC ATRIAL PACEMAKER ELECTRONIC VENTRICULAR PACEMAKER ABNORMAL RHYTHM ECG PREVIOUS TRACING : 03/11/2016 12.04 Compared to prior tracing no significant change DOCTOR: Wesley Tobias Interpretating Date/Time 03/12/2016 22:39:05
--- NOTE | 2016-03-12 22:49 | EKG ---
Date Performed: 03/11/2016 Time Performed: 12:04:52 PTAGE: 80 years EKG: ELECTRONIC VENTRICULAR PACEMAKER ABNORMAL RHYTHM ECG PREVIOUS TRACING : 03/11/2016 07.37 Compared to prior tracing no significant change DOCTOR: Wesley Tobias Interpretating Date/Time 03/12/2016 22:45:34
== END 2016-03-12 16:31 | disposition home or self-care (01) ==
LOC: NED 02:26 → NEDA 08:05 → NEDH 14:41 → NEDA 19:30 → NEPHCDU 21:00
PROVIDERS: ADMIT Hospitalist; ATTEND Hospitalist
DX: D50.0 Iron deficiency anemia secondary to blood loss (chronic) (principal); N02.9 Recurrent and persistent hematuria with unspecified morphologic changes; B95.2 Enterococcus as the cause of diseases classified elsewhere; C61 Malignant neoplasm of prostate; I44.2 Atrioventricular block, complete; N18.9 Chronic kidney disease, unspecified; J45.909 Unspecified asthma, uncomplicated; F17.210 Nicotine dependence, cigarettes, uncomplicated; Z95.0 Presence of cardiac pacemaker; Z90.79 Acquired absence of other genital organ(s)
CPT/HCPCS: 36430; 71010; 80048; 81001; 83735; 84484; 85007; 85027; 85610; 85730; 86077; 86850; 86870; 86900; 86901; 86902; 86920; 86922; 87040; 87077; 87086; 87186; 87205; 87804; 93005; 99285; G0378; J7030; J7050; P9016

== ENCOUNTER 2016-03-12 22:17 | Inpatient (IN) | payer MEDICARE ==
[~2016-03-12] VITALS: Ht 182.9 cm; Wt 70.0 kg
[~2016-03-12 22:17] MED LIST changes: +AUGM500T7 PO; -CIPR-9 PO; +LEUP1INJ6 SQ; +LORA-361 PO
--- NOTE | 2016-03-12 22:25 | PD ---
HPI Chief Complaint: Hematuria Time Seen by Provider: 22:23 Travel History International Travel<30 days: No Contact w/Intl Traveler<30days: No Traveled to known affect area: No History of Present Illness HPI 80-year-old male with history of prostate cancer presents to emergency department for evaluation of urinary retention. Patient has a Hagan in place. He was admitted yesterday and discharged today for gross hematuria and urinary obstruction. Patient was discharged today with gross hematuria. Per the patient, there have been large clots and urinary output is decreased. He reports sensation of having to void and a distended bladder. No fever or chills. No nausea, vomiting, diarrhea. He states that he has been dealing with this for years. He is followed by Dr. Wright. He has no other symptoms to report. PFSH Past Medical History Blood Disorders: No Anxiety: No Depression: No Heart Rhythm Problems: Yes Cancer: Yes Cardiovascular Problems: Yes High Cholesterol: No Chemotherapy: Yes (PROSTATE CA) Chest Pain: No Congestive Heart Failure: No Diminished Hearing: No Endocrine: No Genitourinary: Yes (prostate ca) Immune Disorder: No Implanted Vascular Access Dvce: Yes Musculoskeletal: No Neurologic: No Psychiatric: No Reproductive: No Respiratory: No Radiation Therapy: No Past Surgical History Abdominal Surgery: No Body Medical Devices: PACEMAKER Cardiac Surgery: Yes (PACEMAKER) Ear Surgery: No Endocrine Surgery: No Eye Surgery: No Genitourinary Surgery: Yes (TURP ) Gynecologic Surgery: No Oral Surgery: No Pacemaker: Yes Thoracic Surgery: No Other Surgery: Yes Social History Alcohol Use: No Tobacco Use: No Substance Use: No Allergies-Medications (Allergen,Severity, Reaction): Coded Allergies: No Known Allergies (Verified , 03/12/16) Reported Meds & Prescriptions Reported Meds & Active Scripts Active Augmentin (Amoxicillin-Clavulanate) 500-125 mg Tab 500 Mg PO TID 10 Days Claritin (Loratadine) 10 Mg Tab 10 Mg PO DAILY Reported Eligard Inj Kit (Leuprolide (4 Month) Inj Kit) 30 Mg Kit 30 Mg SQ Q120D Review of Systems Except as stated in HPI: all other systems reviewed are Neg Physical Exam Narrative GENERAL: Well-nourished, well-developed elderly male patient in no acute distress SKIN: Warm and dry. HEAD: Normocephalic. EYES: No scleral icterus. No injection or drainage. NECK: Supple, trachea midline. No JVD or lymphadenopathy. CARDIOVASCULAR: Regular rate and rhythm without murmurs, gallops, or rubs. RESPIRATORY: Breath sounds equal bilaterally. No accessory muscle use. GASTROINTESTINAL: Abdomen soft, nontender. Bladder is distended. Patient is with Hagan catheter in place with gross hematuria noted in the tubing and bag. MUSCULOSKELETAL: No cyanosis, or edema. BACK: Nontender without obvious deformity. No CVA tenderness. Data Data Last Documented VS Vital Signs Date Time Temp Pulse Resp B/P Pulse Ox O2 Delivery O2 Flow Rate FiO2 03/12/16 22:31 16 03/12/16 22:29 98.3 70 166/65 99 Orders Iv Access Insert/Monitor (03/12/16 22:34) Complete Blood Count With Diff (03/12/16 22:34) Basic Metabolic Panel (Bmp) (03/12/16 22:34) Coag Profile (03/12/16 22:34) Bladder/Catheter Irrigation (03/12/16 22:34) MDM Medical Decision Making Medical Screen Exam Complete: Yes Emergency Medical Condition: Yes Medical Record Reviewed: Yes Differential Diagnosis Acute hematuria versus hemorrhagic cystitis versus metastatic disease versus obstruction versus retention Narrative Course 80-year-old male presents to emergency department for evaluation of decreased urinary output and large blood clots and gross hematuria. Patient does have distended bladder as well as gross hematuria noted. Irrigation of the Hagan is ordered. Patient was discharged this morning with a hemoglobin of 8.5. He was admitted overnight for symptomatic anemia. Currently vital signs are stable. Patient is not reporting any shortness of breath or sensation of dizziness. He is asymptomatic except for a distended bladder and gross hematuria. Workup was initiated in the ambulance hallway. Once a medical bed becomes available, patient will transfer. Diagnosis Primary Impression: Hematuria Referrals: Primary Care Physician Urologist Patient Instructions: Hagan Catheter Placement and Care (ED), Hematuria (ED) Additional Instructions: Follow up with urology Return to ED with acute worsening changes Condition: Stable Zohra Moseley Mar 12, 2016 22:25
[2016-03-12 22:29] VITALS: BP 166/65; PULSE 70; RESP 16; TEMP 98.3; O2SAT 99
[2016-03-12 22:54] LABS: AUTOMATED NEUTROPHIL # 7.7 TH/MM3 (1.8-7.7); BASOPHIL % 0.4 % (0.0-2.0); EOSINOPHIL # 0.1 TH/MM3 (0-0.4); HEMATOCRIT 28.1 % (39.0-51.0); HEMO FLAGS DIFF FINAL; LYMPH % 9.6 % (9.0-44.0); LYMPHOCYTE # 0.9 TH/MM3 (1.0-4.8); MEAN CELL VOLUME 82.1 FL (80.0-100.0); MEAN CORPUSCULAR HEMOGLOBIN 27.5 PG (27.0-34.0); MEAN CORPUSCULAR HGB CONC 33.5 % (32.0-36.0); MONO % 10.9 % (0.0-8.0); NEUT % 78.1 % (16.0-70.0); PLATELET COUNT 279 TH/MM3 (150-450); RED BLOOD COUNT 3.42 MIL/MM3 (4.50-5.90); WHITE BLOOD COUNT 9.8 TH/MM3 (4.0-11.0)
[2016-03-12 23:13] LABS: BICARBONATE 22.8 MEQ/L (21.0-32.0); POTASSIUM 4.5 MEQ/L (3.5-5.1)
[2016-03-12 23:35] VITALS: BP 167/74; PULSE 64; RESP 18; O2SAT 99
--- NOTE | 2016-03-13 00:09 | PD ---
Data Data Last Documented VS Vital Signs Date Time Temp Pulse Resp B/P Pulse Ox O2 Delivery O2 Flow Rate FiO2 03/13/16 04:00 65 18 167/77 99 Room Air 03/12/16 22:29 98.3 Orders Iv Access Insert/Monitor (03/12/16 22:34) Complete Blood Count With Diff (03/12/16 22:34) Basic Metabolic Panel (Bmp) (03/12/16 22:34) Coag Profile (03/12/16 22:34) Bladder/Catheter Irrigation (03/12/16 22:34) Acetamin-Hydrocod 325-5 Mg ([place] 5-325 (03/13/16 01:00) Acetamin-Hydrocod 325-5 Mg ([place] 5-325 (03/13/16 01:30) Us Abdomen Lower Limited (03/13/16 ) Consult Urology (03/13/16 ) (Hub Use Only)Inp Phy Cons/Ref (03/13/16 ) Diet Npo (03/13/16 Breakfast) Labs Laboratory Tests Test 03/12/16 03/12/16 01:26 22:45 Prothrombin Time 12.0 SEC Prothromb Time International 1.1 RATIO Ratio Activated Partial 27.1 SEC Thromboplast Time White Blood Count 9.8 TH/MM3 Red Blood Count 3.42 MIL/MM3 Hemoglobin 9.4 GM/DL Hematocrit 28.1 % Mean Corpuscular Volume 82.1 FL Mean Corpuscular Hemoglobin 27.5 PG Mean Corpuscular Hemoglobin 33.5 % Concent Red Cell Distribution Width 17.0 % Platelet Count 279 TH/MM3 Mean Platelet Volume 8.1 FL Neutrophils (%) (Auto) 78.1 % Lymphocytes (%) (Auto) 9.6 % Monocytes (%) (Auto) 10.9 % Eosinophils (%) (Auto) 1.0 % Basophils (%) (Auto) 0.4 % Neutrophils # (Auto) 7.7 TH/MM3 Lymphocytes # (Auto) 0.9 TH/MM3 Monocytes # (Auto) 1.1 TH/MM3 Eosinophils # (Auto) 0.1 TH/MM3 Basophils # (Auto) 0.0 TH/MM3 CBC Comment DIFF FINAL Differential Comment Sodium Level 139 MEQ/L Potassium Level 4.5 MEQ/L Chloride Level 106 MEQ/L Carbon Dioxide Level 22.8 MEQ/L Anion Gap 10 MEQ/L Blood Urea Nitrogen 44 MG/DL Creatinine 1.80 MG/DL Estimat Glomerular Filtration 36 ML/MIN Rate Random Glucose 132 MG/DL Calcium Level 8.8 MG/DL MDM Supervised Visit with CARLOS: No Narrative Course Patient seen and examined by me in addition to Zohra HIGUERA. Patient is known to me from prior presentation. Has a history of chronic hematuria followed by Dr. Wright. Recently admitted for anemia and did have to have blood transfusion. Has been unable to urinate and passing large clots. We will irrigate here in the emergency department recheck labs. H&H is stable from discharge number it hemoglobin of 9-1/2. Patient was started on whole bladder irrigation and was flushed multiple times with 10 cc syringe. Despite multiple flushes and significant irrigation patient continues to clot off his Hagan catheter which was replaced for a 3 way irrigation Hagan catheter in the emergency department. To this effect he was discussed with Dr. Simms who is on-call for urology who will see the patient this morning. An ultrasound has been added per his request. The patient is stable here in the emergency department and is fairly comfortable. Diagnosis Primary Impression: Hematuria Referrals: Primary Care Physician Urologist Patient Instructions: Hagan Catheter Placement and Care (ED), Hematuria (ED) Additional Instruction: Follow up with urology Return to ED with acute worsening changes Condition: Stable Kelvin Garcia MD Mar 13, 2016 00:08
[2016-03-13] MEDS ORDERED: ACETAMINOPHEN/HYDROcodone 325 MG/5 MG TAB PO ONE ×2 (01:00→01:30)
[2016-03-13 01:58] LABS: APTT (PATIENT) 27.1 SEC (24.3-30.1); INTERNATIONAL NORMALIZED RATIO 1.1 RATIO
[2016-03-13 02:00] VITALS: BP 171/70; PULSE 64; RESP 18; O2SAT 99
[2016-03-13 04:00] VITALS: BP 167/77; PULSE 65; RESP 18; O2SAT 99
[2016-03-13 07:20] VITALS: BP 147/62; PULSE 64; RESP 15; O2SAT 100
--- NOTE | 2016-03-13 08:10 | RADRPT ---
EXAM DATE/TIME: 03/13/2016 06:53 [facility] COMPARISON: No previous studies available for comparison. INDICATIONS : Hematuria. MEDICAL HISTORY : Carcinoma, prostate. Hematuria. SURGICAL HISTORY : Pacemaker. TURP. ENCOUNTER: Initial ACUITY: 2 days PAIN SCORE: 0/10 LOCATION: Bilateral flank MEASUREMENTS: RIGHT KIDNEY: 11.7 x 5.5 x 6.0 cm LEFT KIDNEY: 11.9 x 5.1 x 6.3 cm FINDINGS: Extremely heterogeneous urinary bladder seen and differential including hemorrhage/clot and mass or a combination of the two. The bladder is moderately distended at the time of imaging. There is moderate right hydronephrosis and hydroureter. A 9 mm nonobstructing stone is seen in the ri ght lower pole. The left kidney is normal. CONCLUSION: 1. Diffusely heterogeneous urinary bladder of concern for mass and hemorrhage. If the patient's renal function can tolerate, a CT of the abdomen and pelvis to include delayed images of the urinary bladd er recommended. 2. Moderate right hydronephrosis and appears to the secondary to the bladder abnormality. A nonobstru cting right lower pole stone is noted as well. 3. Normal left kidney. Pedro Palacio MD on March 13, 2016 at 8:05 Board Certified Radiologist. This report was verified electronically.
--- NOTE | 2016-03-13 09:03 | PD ---
Data Data Last Documented VS Vital Signs Date Time Temp Pulse Resp B/P Pulse Ox O2 Delivery O2 Flow Rate FiO2 03/13/16 07:20 64 15 147/62 100 Room Air 03/12/16 22:29 98.3 Orders Iv Access Insert/Monitor (03/12/16 22:34) Complete Blood Count With Diff (03/12/16 22:34) Basic Metabolic Panel (Bmp) (03/12/16 22:34) Coag Profile (03/12/16 22:34) Bladder/Catheter Irrigation (03/12/16 22:34) Acetamin-Hydrocod 325-5 Mg ([place] 5-325 (03/13/16 01:00) Acetamin-Hydrocod 325-5 Mg ([place] 5-325 (03/13/16 01:30) Consult Urology (03/13/16 ) (Hub Use Only)Inp Phy Cons/Ref (03/13/16 ) Diet Npo (03/13/16 Breakfast) Us Kidney/Renal/Bladder (03/13/16 ) ^ Consent (03/13/16 09:01) Labs Laboratory Tests Test 03/12/16 03/12/16 01:26 22:45 Prothrombin Time 12.0 SEC Prothromb Time International 1.1 RATIO Ratio Activated Partial 27.1 SEC Thromboplast Time White Blood Count 9.8 TH/MM3 Red Blood Count 3.42 MIL/MM3 Hemoglobin 9.4 GM/DL Hematocrit 28.1 % Mean Corpuscular Volume 82.1 FL Mean Corpuscular Hemoglobin 27.5 PG Mean Corpuscular Hemoglobin 33.5 % Concent Red Cell Distribution Width 17.0 % Platelet Count 279 TH/MM3 Mean Platelet Volume 8.1 FL Neutrophils (%) (Auto) 78.1 % Lymphocytes (%) (Auto) 9.6 % Monocytes (%) (Auto) 10.9 % Eosinophils (%) (Auto) 1.0 % Basophils (%) (Auto) 0.4 % Neutrophils # (Auto) 7.7 TH/MM3 Lymphocytes # (Auto) 0.9 TH/MM3 Monocytes # (Auto) 1.1 TH/MM3 Eosinophils # (Auto) 0.1 TH/MM3 Basophils # (Auto) 0.0 TH/MM3 CBC Comment DIFF FINAL Differential Comment Sodium Level 139 MEQ/L Potassium Level 4.5 MEQ/L Chloride Level 106 MEQ/L Carbon Dioxide Level 22.8 MEQ/L Anion Gap 10 MEQ/L Blood Urea Nitrogen 44 MG/DL Creatinine 1.80 MG/DL Estimat Glomerular Filtration 36 ML/MIN Rate Random Glucose 132 MG/DL Calcium Level 8.8 MG/DL MDM Supervised Visit with CARLOS: No Narrative Course This is an 80-year-old male who was signed out to me by Dr. Garcia. He has a history of prostate cancer presents with hematuria. He's having recurrent catheter obstruction. He received CBI overnight but continued to clot off. Dr. Simms came to see him this morning and plans to take him to the OR later today. Patient will be admitted. Diagnosis Primary Impression: Hematuria Referrals: Primary Care Physician Urologist Patient Instructions: Hagan Catheter Placement and Care (ED), Hematuria (ED) Additional Instruction: Follow up with urology Return to ED with acute worsening changes Condition: Stable Nanette Wright MD Mar 13, 2016 09:03
[2016-03-13] MEDS ORDERED: ACETAMINOPHEN/HYDROcodone 325 MG/5 MG TAB PO PRN ×2 (09:30)
[2016-03-13] MEDS ORDERED: ONDANSETRON HCL 4 MG/2 ML VIAL IV PRN (09:30)
[2016-03-13] MEDS ORDERED: ACETAMINOPHEN 325 MG TAB PO PRN (09:30)
--- NOTE | 2016-03-13 09:43 | HHI.HP ---
HPI Service [facility] Primary Care Physician Eriberto Galloway M.D. Admission Diagnosis hematuria Chief Complaint: Hematuria Travel History International Travel<30 Days: No Contact w/Intl Traveler <30 Da: No Traveled to Known Affected Are: No History of Present Illness Mr. Arora is a pleasant 80 y/o WM with recurrent prostate cancer s/p TURP 10/28 and cystourethroscopy with clot evacuation and bladder fulguration on who follows with Dr. Wright. 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 [place] [facility] [place] an admission with hematuria, cough, congestion, and fever. During that admission pt was noted to have an abnormal UA and culture grew out group D enterococcus. Pts Allen catheter was exchanged prior to discharge and he was discharged on Augmentin TID x 7 days. Pts reports that following discharge the pt started having more pronounced hematuria and blood clot which were clotting off the catheter. He began having retention and abdominal pain and this prompted his return to the ED last night. His tried irrigating the Allen at home without success. Pt was placed on CBI in the ED with continued gross hematuria and blood clots. Renal US was performed which noted diffusely heterogeneous urinary bladder of concern for mass and hemorrhage, moderate right hydronephrosis and appears to the secondary to the bladder abnormality and a nonobstructing right lower pole stone is noted as well, and a normal left kidney. Urology has been consulted and pt is planned for evaluation in the OR with Dr. Simms this afternoon. Review of Systems Constitutional: DENIES: Fever, Chills Respiratory: COMPLAINS OF: Cough, DENIES: Shortness of breath Cardiovascular: DENIES: Chest pain, Palpitations, Lower Extremity Edema Gastrointestinal: COMPLAINS OF: Abdominal pain, DENIES: Nausea, Vomiting Genitourinary: COMPLAINS OF: Hematuria Musculoskeletal: DENIES: Back pain, Neck pain Integumentary: DENIES: Rash Past Family Social History Past Medical History Recurrent prostate cancer and hematuria Sinus bradycardia Complete heart block s/p PPM Asthma Hx of alcohol abuse Hx of tobacco use Past Surgical History PPM 08/2015 Cystourethroscopy with clot evacuation and bladder fulguration on 01/13/16 TURP 10/29/2015 Prostatectomy 2002 Right sided cryotherapy in 2004 Focal radiation therapy as salvage in 2012 Left thumb surgery L4-L5 laminectomy Reported Medications Augmentin (Amoxicillin-Clavulanate) 500-125 mg Tab 500 Mg PO TID 10 Days Claritin (Loratadine) 10 Mg Tab 10 Mg PO DAILY Eligard Inj Kit (Leuprolide (4 Month) Inj Kit) 30 Mg Kit 30 Mg SQ Q120D Allergies: Coded Allergies: No Known Allergies (Verified , 03/12/16) Family History Noncontributory Social History This with his of 4 years. They have been together for 14. He previously had smoked up to one pack per day intermittently for most of his adult life. No alcohol or illicit drugs Previously he was a senior software engineering manager with [employer] Originally from [place], he has been in [place] since 1967 He was an avid runner. Physical Exam Vital Signs Vital Signs Date Time Temp Pulse Resp B/P Pulse Ox O2 Delivery O2 Flow Rate FiO2 03/13/16 07:20 64 15 147/62 100 Room Air 03/13/16 04:00 65 18 167/77 99 Room Air 03/13/16 02:00 64 18 171/70 99 Room Air 03/12/16 23:35 64 18 167/74 99 Room Air 03/12/16 22:31 16 03/12/16 22:29 98.3 70 16 166/65 99 Physical Exam GENERAL: This is a well-nourished, well-developed patient, in no apparent distress. HEENT: Atraumatic. Normocephalic. No temporal or scalp tenderness. No scleral icterus. Airway patent. NECK: Trachea midline, supple, nontender. CARDIO: Regular. RESP: CTA bilaterally. No wheezes, rales, or rhonchi. ABD: +BS, soft, non-tender, nondistended. : Allen cath in place with CBI, gross hematuria and blood clots noted in the Allen bag EXT: Extremities without clubbing, cyanosis, or edema. NEURO: Awake and alert. Motor and sensory grossly within normal limits. Normal speech. Laboratory Laboratory Tests Test 03/12/16 22:45 White Blood Count 9.8 Red Blood Count 3.42 Hemoglobin 9.4 Hematocrit 28.1 Mean Corpuscular Volume 82.1 Mean Corpuscular Hemoglobin 27.5 Mean Corpuscular Hemoglobin 33.5 Concent Red Cell Distribution Width 17.0 Platelet Count 279 Mean Platelet Volume 8.1 Neutrophils (%) (Auto) 78.1 Lymphocytes (%) (Auto) 9.6 Monocytes (%) (Auto) 10.9 Eosinophils (%) (Auto) 1.0 Basophils (%) (Auto) 0.4 Neutrophils # (Auto) 7.7 Lymphocytes # (Auto) 0.9 Monocytes # (Auto) 1.1 Eosinophils # (Auto) 0.1 Basophils # (Auto) 0.0 CBC Comment DIFF FINAL Differential Comment Sodium Level 139 Potassium Level 4.5 Chloride Level 106 Carbon Dioxide Level 22.8 Anion Gap 10 Blood Urea Nitrogen 44 Creatinine 1.80 Estimat Glomerular Filtration 36 Rate Random Glucose 132 Calcium Level 8.8 Result Diagram: 03/12/165 03/12/16 2245 Imaging Last Impressions Renal Ultrasound 03/13/16 0000 Signed Impressions: Service Date/Time: March 06:53 - CONCLUSION: 1. Diffusely heterogeneous urinary bladder of concern for mass and hemorrhage. If the patient's renal function can tolerate, a CT of the abdomen and pelvis to include delayed images of the urinary bladder recommended. 2. Moderate right hydronephrosis and appears to the secondary to the bladder abnormality. A nonobstructing right lower pole stone is noted as well. 3. Normal left kidney. Pedro Palacio MD Septic Shock Reassessment Heart: Regular rate and rhythm Lungs: Clear Skin: Warm Peripheral Pulses: Bounding Right Radial Bounding Left Radial Bounding Right Popliteal Bounding Left Popliteal Bounding Right Dorsalis Pedis Bounding Left Dorsalis Pedis Bounding Right Posterior Tibial Bounding Left Posterior Tibial Capillary Refill: <2 seconds Assessment and Plan Problem List: (1) Hematuria Status: Acute Plan: - Pt with recurrent prostate cancer s/p TURP in 10/2015 and cystourethroscopy with clot evacuation and bladder fulguration in 01/2016 who typically follows with Dr. Wright. - Pt started having hematuria and obstruction related to large clots and had Allen cath placed back on 03/10/[address] Mckinney. - Pt had reported fevers and chills and was admitted from 03/11/16 to 03/12/16. During that admission pt was noted to be anemic with Hgb 7.6 and pt was transfused with 2 units PRBCs. H/H improved today to 8.5/25.8. UA was abnormal with noted large amount of leukocyte esterase and urine culture grew out group D enterococcus. Case was discussed with his Urologist Dr. Wright at that time and pt was prescribed Augmentin TID x 7 days. His Allen cath was exchanged and he was discharged home. - Pt returned to the ER with worsening hematuria with clots and bladder obstruction related to the blood clots. - Pt was started on CBI in the ER. - Renal US noted diffusely heterogeneous urinary bladder of concern for mass and hemorrhage, moderate right hydronephrosis and appears to the secondary to the bladder abnormality and a nonobstructing right lower pole stone is noted as well, and a normal left kidney. - Urology has been consulted and pt is planned for evaluation in the OR with Dr. Simms this afternoon. - H/H at admission was stable at 9.4/28.1. - Serial H/H, keep 2 units of PRBCs on hold for possible transfusion. - IVF - Supportive care - DVT prophylaxis with SCDs (2) History of prostate cancer Status: Chronic Plan: - See above. (3) Anemia Status: Chronic Plan: - See above. Assessment and Plan Patient examined. Assessment and plan formulated with Dee Garcia PA-C. I agree with the above. prostate ca. persistent hematuria has been on eligard. allen exchanged yesterday. pt has group d enterococcus uti. presented with fever/chills and bacteremia...2/4 gpc. will cont zosyn and f/u cx. readmitted this morning for persistent clots in urine. taken to OR for cysto, clot evacuation, bx's of bladder neck and probably extension of malignancy. discussed with . She sAys he is dnr. she also wants to discuss options with [facility]. Physician Certification 2 Midnight Certification Type: Admission for Inpatient Services Order for Inpatient Services The services are ordered in accordance with Medicare regulations or non- Medicare payer requirements, as applicable. In the case of services not specified as inpatient-only, they are appropriately provided as inpatient services in accordance with the 2-midnight benchmark. Estimated LOS (days): 3 3 days is the estimated time the patient will need to remain in the hospital, assuming treatment plan goals are met and no additional complications. Post-Hospital Plan: Not yet determined Dee Garcia Mar 13, 2016 09:43 Aristeo Bone MD Mar 13, 2016 21:26
[2016-03-13] MEDS: SODIUM CHLOR 0.9% 1000 ML INJ 1,000 ML IV SCH ×2 (09:48→16:10)
--- NOTE | 2016-03-13 09:54 | MB ---
cc: EMANUEL MORELOS DATE OF CONSULTATION 03/13/2016 REASON FOR CONSULTATION Mr. Huang is an 80-year-old male with long history of prostate cancer, [place] 10. The patient is under the care of Dr. Wright and has had cryotherapy in the past. He has refused radiation therapy and is currently on androgen blockade to treat his prostate cancer. He has had recurrent hematuria and has had an indwelling Hagan since December. He has been admitted to the emergency room for clot evacuation and for transfusions due to his recurrent bleeding. PAST MEDICAL HISTORY His medical history includes: 1. Prostate cancer 2. A history of BPH with obstruction PAST SURGICAL HISTORY Notable for a suprapubic prostatectomy and a pacemaker insertion. SOCIAL HISTORY Denies alcohol, tobacco or drugs. ALLERGIES He has no allergies for medications. Please refer to the chart. REVIEW OF SYSTEMS He denies chest pain, shortness of breath, gait disturbances, gross hematuria is noted with left lower abdominal pain and an indwelling Hagan catheter. Denies psychiatric problems. Denies heat or cold intolerance. Denies skin lesions. He does have some bruising noted. PHYSICAL EXAM VITAL SIGNS: Temperature is 98.3, heart rate 64, respiratory rate 15, blood pressure 147/62. GENERAL: He is a well-developed, well-nourished 80-year-old male in no acute distress. HEENT is normocephalic, atraumatic. Pupils equal, round, regular, and reactive to light. Extraocular movements intact. NECK: Supple. HEART: Regular rate and rhythm. LUNGS: Clear. ABDOMEN: Soft. The bladder is slightly distended with minimal tenderness over it. Hagan is in place. EXTREMITIES: Show no evidence of cyanosis, clubbing or edema. The Hagan at the bedside was irrigated manually, but due to a large amount of clot in the bladder, was unable to evacuate it, therefore, the Therefore, the patient will need OR intervention with clot evacuation in the OR. ASSESSMENT This is an 80-year-old male with a long history of prostate cancer, [place] 10 with recurrent gross hematuria with clots, unable to clearly evacuate clots due to the three-way Hagan catheter at the bedside. The patient will plan to go to the OR today for cysto and clot evacuation. The risks and benefits were discussed and he is willing to proceed. Emanuel Chris ARANGOL /9:10 AM /9:49 AM
[2016-03-13 11:21] VITALS: BP 134/64; PULSE 67; RESP 16; O2SAT 98
[2016-03-13] MEDS ORDERED: ONDANSETRON HCL 4 MG/2 ML VIAL IV PUSH ONE (12:00)
[2016-03-13] MEDS ORDERED: PROPOFOL 200 MG/20 ML AMP IV ONE (12:00)
[2016-03-13] MEDS ORDERED: PHENYLEPH/NS 1000 MCG/10 ML SYR IV ONE (12:00)
[2016-03-13] MEDS ORDERED: NEOSTIGMINE 3 MG/3 ML SYR IV ONE (12:00)
[2016-03-13] MEDS ORDERED: SODIUM CHLORIDE 0.9% INJ 100 ML ONE (12:45)
[2016-03-13] MEDS ORDERED: ceFAZolin INJ 1,000 MG VIAL ONE (12:45)
[2016-03-13] MEDS ORDERED: MIDAZOLAM HCL 2 MG/2 ML VIAL ONE (13:29)
[2016-03-13] MEDS ORDERED: ceFAZolin 1,000 MG/NS 100 ML IV SCH ×2 (13:45)
[2016-03-13] MEDS ORDERED: BELLADONNA ALKALOIDS/OPIUM 60 MG SUPP RECTAL PRN (15:15)
[2016-03-13] MEDS ORDERED: fentaNYL CITRATE 250 MCG/5 ML AMP ONE (15:17)
[2016-03-13] MEDS: AMINOCAPROIC ACID INJ 3,000 MG in SODIUM CHLORIDE 0.9% IRR BAG 3,000 ML IRRIGATION SCH (15:45)
[2016-03-13] MEDS ORDERED: DO NOT ADM ANY ANTICOAGULANT DRUGS XX PRN (16:00)
[2016-03-13 20:00] VITALS: BP 145/66; PULSE 60; RESP 18; TEMP 96.5; O2SAT 95
[2016-03-13] MEDS: DOCUSATE SODIUM 100 MG CAP PO SCH (20:49)
[2016-03-13] MEDS: PIPERACIL-TAZO 2.25 GM PREMIX 50 ML IV SCH (20:49)
[2016-03-14] VITALS (13 sets, daily range): BP systolic 112–151; BP diastolic 50–73; PULSE 60–80; RESP 16–18; TEMP 96.6–98.8; O2SAT 95–100
[2016-03-14] MEDS: SODIUM CHLOR 0.9% 1000 ML INJ 1,000 ML IV SCH ×2 (02:54→21:06)
[2016-03-14] MEDS: AMINOCAPROIC ACID INJ 3,000 MG in SODIUM CHLORIDE 0.9% IRR BAG 3,000 ML IRRIGATION SCH ×3 (02:55→09:20)
[2016-03-14 05:01] LABS: AUTOMATED NEUTROPHIL # 3.8 TH/MM3 (1.8-7.7); BASOPHIL # 0.1 TH/MM3 (0-0.2); BASOPHIL % 1.2 % (0.0-2.0); EOSINOPHIL # 0.2 TH/MM3 (0-0.4); EOSINOPHIL % 2.8 % (0.0-4.0); MEAN CELL VOLUME 82.5 FL (80.0-100.0); MEAN CORPUSCULAR HEMOGLOBIN 26.8 PG (27.0-34.0); MEAN CORPUSCULAR HGB CONC 32.5 % (32.0-36.0); MONO % 12.7 % (0.0-8.0); NEUT % 66.3 % (16.0-70.0); PLATELET COUNT 242 TH/MM3 (150-450); RED BLOOD COUNT 2.49 MIL/MM3 (4.50-5.90); RED CELL DISTRIBUTION WIDTH 16.7 % (11.6-17.2); WHITE BLOOD COUNT 5.7 TH/MM3 (4.0-11.0)
[2016-03-14 05:13] LABS: HEMO FLAGS DIFF FINAL
[2016-03-14 05:16] LABS: HEMATOCRIT 20.6 % (39.0-51.0)
[2016-03-14 05:20] LABS: BICARBONATE 24.5 MEQ/L (21.0-32.0); MAGNESIUM 2.3 MG/DL (1.5-2.5); POTASSIUM 4.2 MEQ/L (3.5-5.1)
[2016-03-14] MEDS: PIPERACIL-TAZO 2.25 GM PREMIX 50 ML IV SCH ×3 (05:42→21:05)
[2016-03-14] MEDS: DOCUSATE SODIUM 100 MG CAP PO SCH ×2 (09:19→21:05)
--- NOTE | 2016-03-14 09:22 | HHI.PR ---
Subjective Remarks Pt seen and examined. Urine clear now. Somewhat confused-h/o dementia Objective Vital Signs Vital Signs Date Time Temp Pulse Resp B/P Pulse Ox O2 Delivery O2 Flow Rate FiO2 03/14/16 08:00 96.6 80 16 127/58 98 03/14/16 04:00 97.9 63 18 112/56 98 03/14/16 00:00 97.1 60 16 124/59 96 03/13/16 22:07 21 03/13/16 21:48 18 03/13/16 20:00 96.5 60 18 145/66 95 03/13/16 19:00 60 16 136/62 99 Nasal Cannula 2 03/13/16 18:00 60 16 123/60 99 Nasal Cannula 2 03/13/16 17:00 60 16 134/58 99 Nasal Cannula 2 03/13/16 16:30 60 16 135/69 98 Nasal Cannula 2 03/13/16 16:15 60 16 134/68 98 Nasal Cannula 2 03/13/16 16:00 60 16 140/70 98 Nasal Cannula 2 03/13/16 15:45 60 16 135/66 97 Nasal Cannula 2 03/13/16 15:30 60 16 144/70 99 Nasal Cannula 2 03/13/16 15:15 60 16 159/69 96 Nasal Cannula 2 03/13/16 15:10 97.5 68 16 152/69 97 Nasal Cannula 2 03/13/16 11:21 67 16 134/64 98 Room Air I/O 03/13/16 03/13/16 03/13/16 03/14/16 03/14/16 03/14/16 07:00 15:00 23:00 07:00 15:00 23:00 Intake Total 240 ml 6240 ml Output Total 4000 ml 700 ml 3601 ml 4450 ml Balance -4000 ml -700 ml -3361 ml 1790 ml Intake Oral 240 ml 240 ml IV Total 6000 ml Output Urine Total 4000 ml 700 ml 3601 ml 4450 ml # Voids 1 0 # Bowel Movements 1 0 0 Result Diagram: 03/14/1641803/14/16418 Objective Remarks Abd:soft,nt,nd Allen: urine clear; CBI off Assessment and Plan Assessment and Plan Stable s/p cysto with clot evacuation and fulguration For blood transfusion today D/C home with allen F/U one week for possible void trial if urine remains clear. Mehul Simms DO Mar 14, 2016 09:22
--- NOTE | 2016-03-14 11:17 | HHI.PR ---
Subjective Remarks Hematuria has improved and urine is much more clear this morning. Pt underwent cystoscopy with clot evacuation and fulguration on 03/13/[address] Simms Pt still has CBI running. Afebrile. Objective Vitals Vital Signs Date Time Temp Pulse Resp B/P Pulse Ox O2 Delivery O2 Flow Rate FiO2 03/14/16 08:00 96.6 80 16 127/58 98 03/14/16 04:00 97.9 63 18 112/56 98 03/14/16 00:00 97.1 60 16 124/59 96 03/13/16 22:07 21 03/13/16 21:48 18 03/13/16 20:00 96.5 60 18 145/66 95 03/13/16 19:00 60 16 136/62 99 Nasal Cannula 2 03/13/16 18:00 60 16 123/60 99 Nasal Cannula 2 03/13/16 17:00 60 16 134/58 99 Nasal Cannula 2 03/13/16 16:30 60 16 135/69 98 Nasal Cannula 2 03/13/16 16:15 60 16 134/68 98 Nasal Cannula 2 03/13/16 16:00 60 16 140/70 98 Nasal Cannula 2 03/13/16 15:45 60 16 135/66 97 Nasal Cannula 2 03/13/16 15:30 60 16 144/70 99 Nasal Cannula 2 03/13/16 15:15 60 16 159/69 96 Nasal Cannula 2 03/13/16 15:10 97.5 68 16 152/69 97 Nasal Cannula 2 03/13/16 11:21 67 16 134/64 98 Room Air 03/13/16 03/13/16 03/14/16 15:00 23:00 07:00 Intake Total 240 ml 6240 ml Output Total 700 ml 3601 ml 4450 ml Balance -700 ml -3361 ml 1790 ml Intake Oral 240 ml 240 ml IV Total 6000 ml Output Urine Total 700 ml 3601 ml 4450 ml # Voids 0 # Bowel Movements 0 0 Result Diagram: 03/14/16 0419 03/14/16 0419 Other Results Laboratory Tests Test 03/12/16 03/14/16 03/14/16 22:45 04:19 07:00 White Blood Count 9.8 TH/MM3 5.7 TH/MM3 Red Blood Count 3.42 MIL/MM3 2.49 MIL/MM3 Hemoglobin 9.4 GM/DL 6.7 GM/DL Hematocrit 28.1 % 20.6 % Mean Corpuscular Volume 82.1 FL 82.5 FL Mean Corpuscular Hemoglobin 27.5 PG 26.8 PG Mean Corpuscular Hemoglobin 33.5 % 32.5 % Concent Red Cell Distribution Width 17.0 % 16.7 % Platelet Count 279 TH/MM3 242 TH/MM3 Mean Platelet Volume 8.1 FL 8.1 FL Neutrophils (%) (Auto) 78.1 % 66.3 % Lymphocytes (%) (Auto) 9.6 % 17.0 % Monocytes (%) (Auto) 10.9 % 12.7 % Eosinophils (%) (Auto) 1.0 % 2.8 % Basophils (%) (Auto) 0.4 % 1.2 % Neutrophils # (Auto) 7.7 TH/MM3 3.8 TH/MM3 Lymphocytes # (Auto) 0.9 TH/MM3 1.0 TH/MM3 Monocytes # (Auto) 1.1 TH/MM3 0.7 TH/MM3 Eosinophils # (Auto) 0.1 TH/MM3 0.2 TH/MM3 Basophils # (Auto) 0.0 TH/MM3 0.1 TH/MM3 CBC Comment DIFF FINAL DIFF FINAL Differential Comment Sodium Level 139 MEQ/L 141 MEQ/L Potassium Level 4.5 MEQ/L 4.2 MEQ/L Chloride Level 106 MEQ/L 110 MEQ/L Carbon Dioxide Level 22.8 MEQ/L 24.5 MEQ/L Anion Gap 10 MEQ/L 7 MEQ/L Blood Urea Nitrogen 44 MG/DL 33 MG/DL Creatinine 1.80 MG/DL 1.55 MG/DL Estimat Glomerular Filtration 36 ML/MIN 43 ML/MIN Rate Random Glucose 132 MG/DL 175 MG/DL Calcium Level 8.8 MG/DL 8.1 MG/DL Magnesium Level 2.3 MG/DL Blood Type A NEGATIVE Antibody Screen POSITIVE Crossmatch Leukocyte-Reduced Red Blood Cells Blood Bank Comment Imaging Last Impressions Renal Ultrasound 03/13/16 0000 Signed Impressions: Service Date/Time: March 06:53 - CONCLUSION: 1. Diffusely heterogeneous urinary bladder of concern for mass and hemorrhage. If the patient's renal function can tolerate, a CT of the abdomen and pelvis to include delayed images of the urinary bladder recommended. 2. Moderate right hydronephrosis and appears to the secondary to the bladder abnormality. A nonobstructing right lower pole stone is noted as well. 3. Normal left kidney. Pedro Palacio MD Objective Remarks General: NAD, AAOx3 Chest: CTA bilaterally Cardiac: Regular Abd: +BS, soft ND/NT : Hagan cath in place, no gross hematuria noted. A/P Problem List: (1) Hematuria Status: Acute Plan: - Pt with recurrent prostate cancer s/p TURP in 10/2015 and cystourethroscopy with clot evacuation and bladder fulguration in 01/2016 who typically follows with Dr. Wright. - Pt started having hematuria and obstruction related to large clots and had Hagan cath placed back on 03/10/[address] Mckinney. - Pt had reported fevers and chills and was admitted from 03/11/16 to 03/12/16. During that admission pt was noted to be anemic with Hgb 7.6 and pt was transfused with 2 units PRBCs. H/H improved today to 8.5/25.8. UA was abnormal with noted large amount of leukocyte esterase and urine culture grew out group D enterococcus. Case was discussed with his Urologist Dr. Wright at that time and pt was prescribed Augmentin TID x 7 days. His Hagan cath was exchanged and he was discharged home. - Pt returned to the ER with worsening hematuria with clots and bladder obstruction related to the blood clots. - Pt was started on CBI in the ER. - Renal US noted diffusely heterogeneous urinary bladder of concern for mass and hemorrhage, moderate right hydronephrosis and appears to the secondary to the bladder abnormality and a nonobstructing right lower pole stone is noted as well, and a normal left kidney. - Urology following - Pt underwent cysto with clot evacuation and fulguration on 03/13/[address] Simms. Biopsies are pending. . - H/H decreased and pt will receive 2 units PRBCs - Pt received Amicar in the CBI and hematuria is improving. - Pts blood cultures during previous recent admission (03/11/16) are growing out gram positive cocci. - Repeat blood cultures were prior to transfusion - Cont. Zosyn and pt has 3 doses of Cefazolin ordered per urology - Previous Urine culture grew out Group D Enterococcus - Supportive care - DVT prophylaxis with SCDs (2) History of prostate cancer Status: Chronic Plan: - See above. (3) Anemia Status: Chronic Plan: - See above. Assessment and Plan Patient examined. Assessment and plan formulated with Dee Garcia PA-C. I agree with the above. blood loss anemia from hematuria and prostate ca/bladder lesions 2 units blood today cont zosyn for uti and f/u gpc 2/4 blood cx. repeat blood cx discussed with pt/ ..they want [facility] to follow on d/c. Dee Garcia Mar 14, 2016 11:16 Aristeo Bone MD Mar 14, 2016 11:34
--- NOTE | 2016-03-14 12:12 | MP ---
cc: EMANUEL SIMMS DATE OF SURGERY: 03/13/2016 PREOPERATIVE DIAGNOSIS: Prostate cancer [place] 9/10 Gross hematuria with clot retention POSTOPERATIVE DIAGNOSIS: Prostate cancer [place] 9/10 Gross hematuria with clot retention PROCEDURE Cystoscopy, clot evacuation, bladder neck biopsy and fulguration. SURGEON Emanuel Simms MD. ANESTHESIA General endotracheal tube. FLUIDS: Fluids were 500 cc crystalloid. ESTIMATED BLOOD LOSS: 100 cc blood loss was noted. COMPLICATIONS: There no complications. FINDINGS: Findings were tumor involving the prostatic urethra and bladder neck region which was friable and bleeding was unable to visualize both ureteral orifices. He tolerated the procedure well. Her 22[place] three-way Hagan catheter. He was transferred her in stable condition. HISTORY: Jonah Arora is an 80-year-old male who has a history of prostate cancer with [place] nine and ten who has undergone cryo therapy in the past and was on [facility] treatment for Dr. Wright. He was seen in the ER yesterday and after the Hagan catheter was changed he developed significant gross hematuria CBI was started in the clotted off overnight and I was unable to irrigate him at the bedside completely today so decision made to bring them to the operating room to undergo cysto with fulguration of clot at the evacuation. The Risk and benefits were discussed. He was willing to proceed. PROCEDURE: The patient brought to operating room myself as Jonah Groves, he was placed in dorsal lithotomy position, prepped in usual sterile fashion, received preprocedure antibiotics, and general endotracheal tube anesthesia was administered. A 22[place] cystoscope was inserted bladder and huge clot was noted throughout the bladder. The 22 sheath was then placed into the bladder and using the Ellik evacuator multiple clots were then removed from the bladder. Once the bladder was cleared the area of bleeding was coming from the bladder neck where tumor was infiltrated. This area was identified and using the loop resectoscope a small area was resected and sent to pathology. Then using the rollerball the entire prostatic bed and bladder neck region was fulgurated until the bleeding subsided. Once that was done in all bladder clots and tissue was removed from the bladder and evacuated the 22[place] three-way Hagan catheter was inserted with 20 cc in the balloon. He will be started on Amicar CBI overnight and will continue monitor. Emanuel Proctor /3:08 PM /12:00 PM
[2016-03-14 14:07] LABS: HEMATOCRIT 21.7 % (39.0-51.0)
[2016-03-15] VITALS (12 sets, daily range): BP systolic 107–147; BP diastolic 52–65; PULSE 59–83; RESP 16–20; TEMP 95.9–103.2; O2SAT 92–99
[2016-03-15] MEDS: PIPERACIL-TAZO 2.25 GM PREMIX 50 ML IV SCH ×3 (05:07→20:00)
[2016-03-15 06:40] LABS: HEMATOCRIT 22.7 % (39.0-51.0); REVIEW FLAG FINAL
[2016-03-15] MEDS: DOCUSATE SODIUM 100 MG CAP PO SCH ×2 (08:16→22:44)
[2016-03-15] MEDS: SODIUM CHLOR 0.9% 1000 ML INJ 1,000 ML IV SCH ×2 (08:17→21:30)
[2016-03-15 08:52] LABS: BACTERIA, URINE OCC /hpf; BLOOD, URINE LARGE (NEG); COMMENT (UR) CATH-CULTURE IND; CULTURE IF INDICATED CATH CULTURE IND; GLUCOSE,URINE NEG (NEG); KETONE, URINE NEG (NEG); MUCUS URINE FEW /lpf (OCC); NITRITE,URINE NEG (NEG); URINE COLOR RED (YELLW/STRAW)
--- NOTE | 2016-03-15 13:09 | HHI.PR ---
Subjective Remarks comfortable. family present Objective Vitals awake and oriented heart reg lung cta abd s/nt ext no edema allen. dark blood. Vital Signs Date Time Temp Pulse Resp B/P Pulse Ox O2 Delivery O2 Flow Rate FiO2 03/15/16 12:00 97.6 59 18 113/55 99 03/15/16 11:46 97.6 59 16 133/55 99 03/15/16 08:26 95 21 03/15/16 08:00 95.9 76 20 107/53 93 03/15/16 04:00 99.8 83 18 109/53 92 03/15/16 03:37 16 03/15/16 02:30 103.2 03/15/16 00:00 99.1 60 17 135/52 96 03/14/16 22:33 96 21 03/14/16 21:15 98.8 61 18 146/65 95 03/14/16 20:00 98.8 61 18 146/65 95 03/14/16 18:05 97.7 64 18 138/63 100 03/14/16 17:50 97.1 73 18 151/68 98 03/14/16 17:27 97.0 73 18 151/73 98 03/14/16 15:48 97.9 68 18 121/50 96 03/14/16 13:57 97.9 67 16 125/53 03/14/16 13:40 96.8 66 16 116/53 99 03/14/16 03/14/16 03/15/16 15:00 23:00 07:00 Intake Total 840 ml 480 ml 120 ml Output Total 800 ml 1550 ml 650 ml Balance 40 ml -1070 ml -530 ml Intake Oral 840 ml 480 ml 120 ml Output Urine Total 800 ml 1550 ml 650 ml # Bowel Movements 0 0 Result Diagram: 03/15/16 0531 03/14/16 0419 Imaging Last Impressions Renal Ultrasound 03/13/16 0000 Signed Impressions: Service Date/Time: March 06:53 - CONCLUSION: 1. Diffusely heterogeneous urinary bladder of concern for mass and hemorrhage. If the patient's renal function can tolerate, a CT of the abdomen and pelvis to include delayed images of the urinary bladder recommended. 2. Moderate right hydronephrosis and appears to the secondary to the bladder abnormality. A nonobstructing right lower pole stone is noted as well. 3. Normal left kidney. Pedro Palacio MD A/P Problem List: (1) Hematuria Status: Acute Plan: - Pt with recurrent prostate cancer s/p TURP in 10/2015 and cystourethroscopy with clot evacuation and bladder fulguration in 01/2016 who typically follows with Dr. Wright. - Pt started having hematuria and obstruction related to large clots and had Allen cath placed back on 03/10/[address] Mckinney. - Pt had reported fevers and chills and was admitted from 03/11/16 to 03/12/16. During that admission pt was noted to be anemic with Hgb 7.6 and pt was transfused with 2 units PRBCs. H/H improved today to 8.5/25.8. UA was abnormal with noted large amount of leukocyte esterase and urine culture grew out group D enterococcus. Case was discussed with his Urologist Dr. Wright at that time and pt was prescribed Augmentin TID x 7 days. His Allen cath was exchanged and he was discharged home. - Pt returned to the ER with worsening hematuria with clots and bladder obstruction related to the blood clots. - Pt was started on CBI in the ER. - Renal US noted diffusely heterogeneous urinary bladder of concern for mass and hemorrhage, moderate right hydronephrosis and appears to the secondary to the bladder abnormality and a nonobstructing right lower pole stone is noted as well, and a normal left kidney. - Urology following - Pt underwent cysto with clot evacuation and fulguration on 03/13/[address] Simms. Biopsies are pending. . - Pt received Amicar in the CBI and hematuria is improving. - Pts blood cultures during previous recent admission (03/11/16) are growing out gram positive cocci. - Repeat blood cultures were prior to transfusion - Long talk with pt/ and his sister. They want to go home tomorrow morning with [facility]. they want no further blood transfusions after today. we are giving 2 units. They are ok with abx for uti/bacteremia. cx pending. they would like to keep allen for comfort and hospice to flush. we will d/c him home with hospice in AM once arrangements made. (2) History of prostate cancer Status: Chronic Plan: - See above. (3) Anemia Status: Chronic Plan: - See above. Aristeo Bone MD Mar 15, 2016 13:09
--- NOTE | 2016-03-15 13:11 | HHI.DCPOC ---
Discharge Care Plan Diagnosis: (1) History of prostate cancer (2) Hematuria (3) UTI (urinary tract infection) (4) Bacteremia (5) Blood loss anemia Goals to Promote Your Health * To prevent worsening of your condition and complications * To maintain your health at the optimal level Directions to Meet Your Goals Take your medications as prescribed Follow your dietary instruction Follow activity as directed Keep your appointments as scheduled Take your immunizations and boosters as scheduled If your symptoms worsen call your PCP, if no PCP go to Urgent Care Center or Emergency Room Smoking is Dangerous to Your Health. Avoid second hand smoke Call the 24-hour hour crisis hotline for domestic abuse at Aristeo Bone MD Mar 15, 2016 13:11
[2016-03-15] MEDS: AMINOCAPROIC ACID INJ 3,000 MG in SODIUM CHLORIDE 0.9% IRR BAG 3,000 ML IRRIGATION SCH (15:15)
[2016-03-16] VITALS: BP 122/60; PULSE 60; RESP 19; TEMP 98.6; O2SAT 95
[2016-03-16] MEDS: PIPERACIL-TAZO 2.25 GM PREMIX 50 ML IV SCH (04:00)
[2016-03-16 05:49] LABS: AUTOMATED NEUTROPHIL # 9.2 TH/MM3 (1.8-7.7); BASOPHIL # 0.1 TH/MM3 (0-0.2); BASOPHIL % 0.8 % (0.0-2.0); EOSINOPHIL # 0.3 TH/MM3 (0-0.4); EOSINOPHIL % 2.2 % (0.0-4.0); HEMATOCRIT 30.4 % (39.0-51.0); HEMO FLAGS DIFF FINAL; LYMPH % 10.6 % (9.0-44.0); LYMPHOCYTE # 1.2 TH/MM3 (1.0-4.8); MEAN CELL VOLUME 81.4 FL (80.0-100.0); MEAN CORPUSCULAR HEMOGLOBIN 26.7 PG (27.0-34.0); MEAN CORPUSCULAR HGB CONC 32.8 % (32.0-36.0); MONO % 8.2 % (0.0-8.0); NEUT % 78.2 % (16.0-70.0); PLATELET COUNT 236 TH/MM3 (150-450); RED BLOOD COUNT 3.74 MIL/MM3 (4.50-5.90); RED CELL DISTRIBUTION WIDTH 17.7 % (11.6-17.2); WHITE BLOOD COUNT 11.8 TH/MM3 (4.0-11.0)
[2016-03-16] MEDS: SODIUM CHLOR 0.9% 1000 ML INJ 1,000 ML IV SCH (07:30)
[2016-03-16] MEDS: DOCUSATE SODIUM 100 MG CAP PO SCH (09:00)
--- NOTE | 2016-03-16 12:48 | HHI.DS ---
Discharge Summary Admission Date Mar 13, 2016 at 09:08 Discharge Date: Mar 16, 2016 Admitting Diagnosis hematuria (1) Hematuria Diagnosis: Principal (2) History of prostate cancer Diagnosis: Principal (3) Anemia Diagnosis: Principal (4) UTI (urinary tract infection) Diagnosis: Principal (5) Bacteremia Diagnosis: Principal (6) Blood loss anemia Diagnosis: Principal Brief History Mr. Arora is a pleasant 80 y/o WM with recurrent prostate cancer s/p TURP 10/28 and cystourethroscopy with clot evacuation and bladder fulguration on who follows with Dr. Wright. 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 Pt was just discharged from [facility] yesterday afternoon after an admission with hematuria, cough, congestion, and fever. During that admission pt was noted to have an abnormal UA and culture grew out group D enterococcus. Pts Allen catheter was exchanged prior to discharge and he was discharged on Augmentin TID x 7 days. Pts reports that following discharge the pt started having more pronounced hematuria and blood clot which were clotting off the catheter. He began having retention and abdominal pain and this prompted his return to the ED last night. His tried irrigating the Allen at home without success. Pt was placed on CBI in the ED with continued gross hematuria and blood clots. Renal US was performed which noted diffusely heterogeneous urinary bladder of concern for mass and hemorrhage, moderate right hydronephrosis and appears to the secondary to the bladder abnormality and a nonobstructing right lower pole stone is noted as well, and a normal left kidney. Urology has been consulted and pt is planned for evaluation in the OR with Dr. Simms this afternoon. CBC/BMP: 03/16/16 0515 03/14/16 0419 Significant Findings Laboratory Tests Test 03/14/16 03/14/16 03/14/16 03/15/16 04:19 07:00 13:43 05:31 Red Blood Count 2.49 MIL/MM3 (4.50-5.90) Hemoglobin 6.7 GM/DL 6.9 GM/DL 7.5 GM/DL (13.0-17.0) (13.0-17.0) (13.0-17.0) Hematocrit 20.6 % 21.7 % 22.7 % (39.0-51.0) (39.0-51.0) (39.0-51.0) Mean Corpuscular Hemoglobin 26.8 PG (27.0-34.0) Monocytes (%) (Auto) 12.7 % (0.0-8.0) Chloride Level 110 MEQ/L (98-107) Blood Urea Nitrogen 33 MG/DL (7-18) Creatinine 1.55 MG/DL (0.60-1.30) Estimat Glomerular Filtration 43 ML/MIN (>89) Rate Random Glucose 175 MG/DL (74-106) Calcium Level 8.1 MG/DL (8.5-10.1) Antibody Screen POSITIVE Test 03/15/16 03/16/16 07:50 05:15 Urine Color RED (YELLW/STRAW) Urine Turbidity CLOUDY (CLEAR) Urine Protein 100 mg/dL (NEG-TRACE) Urine Occult Blood LARGE (NEG) Urine Leukocyte Esterase SMALL (NEG) Urine WBC 122 /hpf (0-5) Urine WBC Clumps FEW (NONE) Urine Bacteria OCC /hpf (NONE) Urine Mucus FEW /lpf (OCC) Urine Yeast (Budding) MANY (NONE) White Blood Count 11.8 TH/MM3 (4.0-11.0) Red Blood Count 3.74 MIL/MM3 (4.50-5.90) Hemoglobin 10.0 GM/DL (13.0-17.0) Hematocrit 30.4 % (39.0-51.0) Mean Corpuscular Hemoglobin 26.7 PG (27.0-34.0) Red Cell Distribution Width 17.7 % (11.6-17.2) Neutrophils (%) (Auto) 78.2 % (16.0-70.0) Monocytes (%) (Auto) 8.2 % (0.0-8.0) Neutrophils # (Auto) 9.2 TH/MM3 (1.8-7.7) Monocytes # (Auto) 1.0 TH/MM3 (0-0.9) Hospital Course - Pt with recurrent prostate cancer s/p TURP in 10/2015 and cystourethroscopy with clot evacuation and bladder fulguration in 01/2016 who typically follows with Dr. Wright. - Pt started having hematuria and obstruction related to large clots and had Allen cath placed back on 03/10/[address] Mckinney. - Pt had reported fevers and chills and was admitted from 03/11/16 to 03/12/16. During that admission pt was noted to be anemic with Hgb 7.6 and pt was transfused with 2 units PRBCs. H/H improved today to 8.5/25.8. UA was abnormal with noted large amount of leukocyte esterase and urine culture grew out group D enterococcus. Case was discussed with his Urologist Dr. Wright at that time and pt was prescribed Augmentin TID x 7 days. His Allen cath was exchanged and he was discharged home. - Pt returned to the ER with worsening hematuria with clots and bladder obstruction related to the blood clots. - Pt was started on CBI in the ER. - Renal US noted diffusely heterogeneous urinary bladder of concern for mass and hemorrhage, moderate right hydronephrosis and appears to the secondary to the bladder abnormality and a nonobstructing right lower pole stone is noted as well, and a normal left kidney. - Pt underwent cysto with clot evacuation and fulguration on 03/13/[address] Simms. Biopsies are pending. . - Pt received Amicar in the CBI and hematuria is improving. - Pts blood cultures during previous recent admission (03/11/16) are growing out gram positive cocci. - Repeat blood cultures were prior to transfusion and pending. -Long talk with pt/ and his sister. They want to go home with [facility]. they want no further blood transfusions after today. hgb now 10.. They are ok with abx for uti/ bacteremia. cx pending. they would like to keep allen for comfort and hospice to flush. Pt Condition on Discharge: Stable Discharge Disposition: Hospice/ Home Discharge Instructions DIET: Follow Instructions for: As Tolerated, No Restrictions Activities you can perform: Regular-No Restrictions Follow up Referrals: Urology - 1 Week with Mehul Simms DO Continued Medications: Amoxicillin-Clavulanate (Augmentin) 500-125 mg Tab 500 MG PO TID Infection Days 10 Ref 0 TAB Loratadine (Claritin) 10 Mg Tab 10 MG PO DAILY cough #14 TAB Discontinued Medications: Leuprolide (4 Month) Inj Kit (Eligard Inj Kit) 30 Mg Kit 30 MG SQ Q120D #1 Ref 0 KIT Aristeo Bone MD Mar 16, 2016 12:48
--- NOTE | 2016-03-31 08:48 | PQ ---
Physician Query Response Document PATIENT: BENJIE OLIVERA : 1935 ADMIT DATE: 03/13/2016 9:08 AM DISCH DATE: 03/16/2016 10:42 AM RESPONDING PROVIDER #: Rbraithw QUERY TEXT: Anemia Type Anemia is documented in the Medical Record. Please specify the cause (includes suspected or probable cause) Such as: -- Due to acute blood loss -- Due to chronic blood loss -- Due to iron deficiency -- Due to postoperative blood loss -- Due to chronic disease -- Other, please specify The patient's Clinical Indicators include: blood loss anemia from hematuria and prostate ca/bladder lesions H/H decreased and pt will receive 2 units PRBCs ADMISSION HGB 03/12 HGB 9.4 HCT 28.1 03/14 HGB 6.7 HCT 20. Query created by: Rema Carpenter on 03/14/2016 2:46 PM RESPONSE TEXT: This patient has acute blood loss anemia from his prostate ca/bladder lesions. Electronically signed by: Aristeo Bone MD 03/31/2016 8:44 AM
== END 2016-03-16 10:42 | disposition home or self-care (01) | DRG 669 ==
LOC: NEPC 22:17 → NEDA 03-13 09:08 → N07A 03-13 19:57
PROVIDERS: ADMIT Hospitalist; ATTEND Hospitalist
PROC: 0TBC8ZX Excision of Bladder Neck, Via Natural or Artificial Opening Endoscopic, Diagnostic (ICD-10-PCS; 2016-03-13)
PROC: 30253N1 (ICD-10-PCS; 2016-03-13)
PROC: 0T9B80Z Drainage of Bladder with Drainage Device, Via Natural or Artificial Opening Endoscopic (ICD-10-PCS; principal; 2016-03-13 13:31)
DX: N02.9 Recurrent and persistent hematuria with unspecified morphologic changes (principal); N39.0 Urinary tract infection, site not specified; I44.2 Atrioventricular block, complete; N13.30 Unspecified hydronephrosis; F03.90 Unspecified dementia, unspecified severity, without behavioral disturbance, psychotic disturbance, mood disturbance, and anxiety; B95.2 Enterococcus as the cause of diseases classified elsewhere; N32.89 Other specified disorders of bladder; C61 Malignant neoplasm of prostate; D50.0 Iron deficiency anemia secondary to blood loss (chronic); Z95.0 Presence of cardiac pacemaker; J45.909 Unspecified asthma, uncomplicated; N40.1 Benign prostatic hyperplasia with lower urinary tract symptoms; Z66 Do not resuscitate; Z87.891 Personal history of nicotine dependence; Z90.79 Acquired absence of other genital organ(s)
CPT/HCPCS: 36430; 51700; 71010; 76775; 76937; 80048; 81001; 83735; 84484; 85007; 85014; 85018; 85025; 85027; 85610; 85730; 86077; 86850; 86870; 86900; 86901; 86902; 86920; 86922; 87040; 87077; 87086; 87186; 87205; 87804; 88307; 93005; G0378; J0690; J2250; J2370; J2405; J2543; J2710; J3010; J7030; J7050; P9016